=== PATIENT | male | born 1950 | race Caucasian/White ===

== ENCOUNTER → 2017-11-10 13:25 | Outpatient (CLI) | payer MEDICARE, OTHER, SELFPAY | PROVIDERS: PCP Nurse Practitioner; Visit Provider Nurse Practitioner | DX: R55 Syncope and collapse (principal) | CPT/HCPCS: 93270 ==

== ENCOUNTER → 2019-08-07 08:47 | Outpatient (CLI) | payer MEDICARE, OTHER, SELFPAY ==
--- NOTE | 2019-08-07 09:07 | XR_ITS ---
PROCEDURE: XR CHEST 2V CLINICAL HISTORY: BRONCHITIS,COPD COMPARISON: CXR CHEST(2 VIEWS-NOT PORTABLE) from 01/28/2017 CXR CHEST(2 VIEWS-NOT PORTABLE) from 06/07/[address] [facility] CHEST W/O CONTRAST from 06/25/2017 FINDINGS: The cardiomediastinal silhouette and pulmonary vascularity are within normal limits. The lungs are clear without infiltrates, suspicious nodules, or pleural effusions. No acute bony abnormalities. IMPRESSION: No acute findings. Dictated by: Vlad Alfaro 08/07/2019 18:58 Electronically signed by Vlad Alfaro in [place] 08/07/2019 18:58
== END ==
PROVIDERS: PCP Family Medicine; Visit Provider Nurse Practitioner Family
DX: J20.9 Acute bronchitis, unspecified (principal); J44.0 Chronic obstructive pulmonary disease with (acute) lower respiratory infection
CPT/HCPCS: 71046

== ENCOUNTER → 2020-08-15 11:07 | Outpatient (CLI) | payer MEDICARE, OTHER, SELFPAY ==
--- NOTE | 2020-08-15 11:30 | PC.NURSE ---
Pre and Post PFT completed without difficulty. Albuterol 0.083% given via hand held nebulizer per protocol. Pt tolerated well.
== END ==
PROVIDERS: PCP Family Medicine; Visit Provider Family Medicine
DX: R06.00 Dyspnea, unspecified (principal); R06.2 Wheezing
CPT/HCPCS: 94060

== ENCOUNTER → 2022-03-24 15:19 | Outpatient (CLI) | payer MEDICARE, OTHER, SELFPAY ==
--- NOTE | 2022-03-24 15:26 | XR_ITS ---
FINAL REPORT CLINICAL HISTORY: CRUSHING INJURY OF RT GREAT TOE FINDINGS: RIGHT FOOT: Three views of the right foot were obtained. There is a fracture of the distal aspect of the 1st proximal phalanx that extends to the interphalangeal joint. There are fractures of the proximal and distal aspects of the 1st distal phalanx. There are mild degenerative changes. There is no soft tissue abnormality. IMPRESSION: Multiple fractures of the great toe. Reviewed, Interpreted and Dictated by John Kimble III, MD Transcribed by Yaakov Herron Authenticated and [facility]
== END ==
PROVIDERS: PCP Family Medicine; Visit Provider Nurse Practitioner Family
DX: S97.111A Crushing injury of right great toe, initial encounter (principal)
CPT/HCPCS: 73630

== ENCOUNTER → 2023-04-29 12:13 | Outpatient (CLI) | payer MEDICARE, OTHER, SELFPAY | PROVIDERS: PCP Family Medicine; Visit Provider Internal Medicine Pulmonary Disease | DX: R06.09 Other forms of dyspnea (principal) ==

== ENCOUNTER → 2023-05-03 12:38 | Outpatient (CLI) | payer MEDICARE, OTHER, SELFPAY ==
--- NOTE | 2023-05-03 13:34 | PC.NURSE ---
6 Minute Walk test completed on room air, Pt has no complaints. PFT completed without incident. Albuterol 0.083% given via HHN, per written protocol Pt tolerated tx well.
== END ==
PROVIDERS: PCP Family Medicine; Visit Provider Internal Medicine Pulmonary Disease
DX: R06.09 Other forms of dyspnea (principal)
CPT/HCPCS: 94060; 94618; 94726; 94729

== ENCOUNTER 2024-05-08 09:08 | Outpatient (CLI) | payer MEDICARE, OTHER, SELFPAY ==
--- NOTE | 2024-05-08 09:10 | US_ITS ---
FINAL REPORT CLINICAL HISTORY: DYSURIA FINDINGS: Sonographic images of the right upper quadrant were obtained. The pancreas is partially obscured. There is fatty infiltration of the liver. There are multiple benign hepatic cysts within the left lobe measuring up to 32 mm. The gallbladder appears normal without evidence of gallstones.There is no evidence of biliary ductal dilatation.The common duct measures 4mm. Limited images of the right kidney are unremarkable. IMPRESSION: 30 infiltration of the liver with multiple benign hepatic cysts. Reviewed, Interpreted and Dictated by Jose Alejandro Luu MD Transcribed by Raeann Phipps Authenticated and [facility]
== END 2024-05-08 23:59 | disposition home or self-care (01) ==
LOC: RAD 09:09
PROVIDERS: PCP Nurse Practitioner; Visit Provider Nurse Practitioner
DX: R30.0 Dysuria (principal)
CPT/HCPCS: 76705

== ENCOUNTER 2024-05-29 07:52 | Inpatient (IN) | payer MEDICARE, OTHER, SELFPAY ==
[2024-05-29] VITALS (13 sets, daily range): BP systolic 149–212; BP diastolic 85–116; PULSE 66–94; RESP 12–22; TEMP 36.4–37.8; O2SAT 94–98; BMI 31.7
--- NOTE | 2024-05-29 07:58 | ECG_ITS ---
APPROVED REPORT Exam: Resting ECG HR:95 bpm ECG Measurements Heart Rate 95 AXES [place] 141 P 75 QRSd 85 QRS 53 QT 330 T 64 QTc 383 Conclusion SINUS RHYTHM NORMAL ECG UNCONFIRMED REPORT Electronically signed by : Jl Batista, 05/30/2024 14:53:53
[2024-05-29 08:16] LABS: Basophils # 0.1 K/mm3 (0-0.2); Basophils % 0.7 % (0.1-2.0); Eosinophils # 0.1 K/mm3 (0.0-0.4); Eosinophils % 0.6 % (0.1-12.0); Hematocrit 45.1 % (42.0-52.0); Hemoglobin 16.6 g/dL (14.1-18.0); Lymphocytes # 0.7 K/mm3 (0.7-4.5); Lymphocytes % 6.6 % (10-50); Mean Corpuscular HGB Conc 36.9 g/dL (31.8-35.4); Mean Corpuscular Hemoglobin 31.5 pg (27.0-31.2); Mean Corpuscular Volume 85.5 fl (80-94); Mean Platelet Volume 7.6 fl (7.4-10.4); Monocytes # 0.9 K/mm3 (0.1-1.0); Monocytes % 7.9 % (1.7-9.3); Neutrophils # 9.4 K/mm3 (1.8-7.8); Neutrophils % 84.2 % (37.0-80.0); Platelet Count 136 K/mm3 (142-424); Red Blood Count 5.28 M/mm3 (4.60-6.20); Red Cell Distribution Width 14.7 % (11.5-17.5); White Blood Count 11.1 K/mm3 (4.8-10.8)
--- NOTE | 2024-05-29 08:18 | CT_ITS ---
FINAL REPORT TECHNIQUE: After the administration of oral and intravenous contrast, axial images were obtained through the abdomen and pelvis by computed tomography. The study was performed with techniques to keep radiation dose as low as reasonably achievable, (ALARA). Individual dose reduction techniques using automated exposure control or adjustment of mA and/or kV according to the patient's size were employed. CLINICAL HISTORY: left flank, LLQ abd pain FINDINGS: Abdomen: There is scarring in the lung bases. There are a multitude of benign appearing cysts in the liver measuring up to 5.2 cm in greatest dimension. The gallbladder is present. The spleen, pancreas, and adrenal glands are unremarkable. There are bilateral renal stones measuring up to 4 mm in the right kidney and up to 7 mm in the left kidney. The aorta is normal in caliber. There is no free fluid or adenopathy. Pelvis: There is extensive inflammatory reaction surrounding the distal descending colon. This inflammation is best seen on images 61 through 69 of series 3 consistent with acute diverticulitis. There are scattered diverticula in the sigmoid colon. The appendix is not identified. There is a large bladder stone measuring up to 2.3 cm. There is no free fluid or adenopathy. IMPRESSION: Inflammation surrounding the distal descending colon consistent with acute diverticulitis. Bilateral nonobstructing renal stones and a large bladder stone. Benign appearing cysts in the liver. Reviewed, Interpreted and Dictated by Edward Maher MD Transcribed by Sho Miller Authenticated and [facility]
--- NOTE | 2024-05-29 08:24 | PC.NURSE ---
dr lee at bedside
[2024-05-29] MEDS: LACTATED RINGERS 1000ML 2,120 ML 1060 ML IV (08:29)
[2024-05-29 08:32] LABS: Albumin Level 4.4 g/dl (3.5-5.0); Chloride 99 mmol/L (98-107); Sodium 135 mmol/L (136-145)
[2024-05-29] MEDS: ACETAMINOPHEN 1,000MG/100ML VIAL 1000 MG IV (08:32)
[2024-05-29 08:33] LABS: Potassium 3.8 mmoL/L (3.5-5.1)
[2024-05-29 08:35] LABS: Alanine Aminotransferase 24 U/L (12-78); Albumin/Globulin Ratio 1.7 (1.1-1.8); Alkaline Phosphatase 58 U/L (38-126); Anion Gap 9.8 mEq/L (5-15); Aspartate Amino Transferase 24 U/L (17-59); Bilirubin,Total 1.8 mg/dl (0.2-1.3); Blood Urea Nitrogen 9 mg/dl (9-20); Carbon Dioxide 30 mmol/L (22.0-30.0); Creatinine Clearance Estimated 72 mL/min (50-200); Estimated Glomerular Filt Rate 59 ml/min (>60); GFR (African American) 71 ML/MIN (>60); Globulin 2.6 g/dL (1.3-3.2)
[2024-05-29 08:36] LABS: Calcium 9.7 mg/dl (8.4-10.2); Glucose 133 mg/dl (74-100)
[2024-05-29 08:36] LABS: Lactic Acid 1.2 mmol/L (0.7-2.1)
--- NOTE | 2024-05-29 08:36 | HMH.EDGENADL ---
Discharge Plan Disposition Patient Disposition: Admitted Prescriptions Prescriptions: No Action trazodone 150 mg tablet 150 mg PO DAILY atorvastatin 10 mg tablet 10 mg PO DAILY diazepam 5 mg tablet 5 mg PO .Q12 PRN (Reason: .) verapamil 240 mg capsule,ext rel. pellets 24 hr 240 mg PO DAILY metoprolol succinate 100 mg tablet extended release 24 hr 100 mg PO DAILY fluticasone propionate [Flonase Allergy Relief] 50 mcg/actuation spray,suspension 2 spray intranasal DAILY 90 Days Qty: 16 2RF Rx Instructions: administer into each nostril albuterol sulfate 90 mcg/actuation HFA aerosol inhaler 2 inh inhalation Q6H PRN (Reason: shortness of breath or wheezing) 90 Days Qty: 8.5 2RF prednisone 20 mg tablet 20 mg PO DAILY Rx Instructions: 2 tabs bid for 7 days Referrals Follow up/Referrals: Kelly Fuentes APRN [Primary Care Provider] - See instructions Clinical Impressions Clinical Impression: Sepsis, Diverticulitis, Weakness Instructions Patient Instructions: DI for Altered Mental Status Print Language Print Language: Upper Sorbian Discharge ED Provider: Fina Batista General Adult HPI General Chief complaint: Altered Mental Status Stated complaint: Lower ab pain, weakness, disoriented Time Seen by Provider: 05/29/24 08:09 Mode of Arrival: Wheelchair Source of Information: Patient and Spouse Limitations: No Limitations Description of Symptoms (Recalled from ER Triage Doc. by RN): pt presents to the er for confusion, states she found him in the floor about a hour and a half prior to arrival, states he has had a uti for 3 months that has been difficult to treat, has been on several antibiotics, last dose of antibiotics taken about a week and a half ago, waiting on follow up with dr call, states pt has felt feverish this am, pt reports discomfort in his lower left abdomen History of Present Illness HPI narrative: Patient is a 74-year-old male presents today with generalized weakness and being unable to get up on his own strength. He states that he felt very weak this morning did not fall but just went to the ground and was able to get up. His found him. He has been dealing with a difficult to treat urinary tract infection from historical standpoint. Has been on several antibiotics. On his last antibiotic administration he significantly improved but he has been off of it for 3 days and got worse. Has had a fever at home. Also has complained of lower abdominal discomfort. Recently had an ultrasound without any significant abnormalities on this. Other than COPD denies any significant past medical history. Related Data Home Medications ?Medication ?Instructions ?Recorded ?Confirmed atorvastatin 10 mg tablet 10 mg PO DAILY 01/26/23 05/29/24 diazepam 5 mg tablet 5 mg PO .Q12 PRN . 01/26/23 05/29/24 metoprolol succinate 100 mg 100 mg PO DAILY 01/26/23 05/29/24 tablet,extended release 24 hr trazodone 150 mg tablet 150 mg PO DAILY 01/26/23 05/29/24 verapamil 240 mg 24 hr 240 mg PO DAILY 01/26/23 05/29/24 capsule,extended release prednisone 20 mg tablet 20 mg PO DAILY 05/29/24 05/29/24 Previous Rx's ?Medication ?Instructions ?Recorded fluticasone propionate 50 2 spray intranasal DAILY 90 days 11/11/23 mcg/actuation nasal #16 grams spray,suspension (Flonase Allergy Relief) albuterol sulfate 90 mcg/actuation 2 inh inhalation Q6H PRN shortness 03/13/24 aerosol inhaler of breath or wheezing 90 days #8.5 grams Allergies Allergy/AdvReac Type Severity Reaction Status Date / Time codeine Allergy Intermediate Other Verified 05/29/24 08:[address] Dye Allergy Other Uncoded 05/29/24 08:11 [facility] Disclaimer: The information contained in this section may have been updated after the patient was seen, as this information can be updated by other users. Medical History COPD mixed type Allergic rhinitis Stopped smoking between 5 and 10 years ago Family history of asthma Dyspnea on exertion Asthma Surgical History History of hernia surgery History of tonsillectomy Family History No significant family history Social History Smoking Status: Never smoker how long ago did patient quit smokin alcohol intake: never current occupational status: retired Travel in the last 8 weeks: None Other Medical History Have you received the Pneumonia Vaccine: Yes ROS Obtained: Yes All systems reviewed & no additional complaints except as documented Physical Exam General General appearance: alert Respiratory Respiratory exam: Present normal lung sounds bilaterally Cardiovascular Cardiovascular exam: Present tachycardia Abdominal Exam Abdominal exam: Present other (Left lower quadrant tenderness palpation no rebound or guarding) Neurological Exam Neurological exam: Present alert and oriented X3 Medical Decision Making Medical Records Screening: Per USPSTF and CDC recommendations, given the prevalence of disease in our region, it is our hospital?s policy to screen for HIV and viral Hepatitis for all patients aged 18 and over and those with ongoing risk factors. [place] Inquiry Pt receiving controlled substance: No Vital Signs: 05/29/24 07:54 05/29/24 08:30 05/29/24 09:18 Temperature 100.0 F H Temperature Source Oral Pulse Rate 87 82 Pulse Rate [Left Radial] 94 H Respiratory Rate 22 16 17 Blood Pressure 191/116 H 180/109 H Blood Pressure [Right Arm] 212/114 H Blood Pressure Mean 140 Blood Pressure Mean [Right Arm] 146 Blood Pressure Source [Right Arm] Automatic Cuff Blood Pressure Position [Right Arm] Sitting 02 Sat by Pulse Oximetry 94 L 94 L 98 Oxygen Delivery Method Room Air 05/29/24 09:30 05/29/24 10:00 05/29/24 10:31 Temperature Temperature Source Pulse Rate 80 78 72 Pulse Rate [Left Radial] Respiratory Rate 18 15 12 Blood Pressure 188/106 H 190/104 H 165/97 H Blood Pressure [Right Arm] Blood Pressure Mean 143 141 Blood Pressure Mean [Right Arm] Blood Pressure Source [Right Arm] Blood Pressure Position [Right Arm] 02 Sat by Pulse Oximetry 95 96 95 Oxygen Delivery Method Room Air Lab Data Lab results reviewed: Yes I reviewed the patient's lab results. Lab Results 05/29/24 08:00: WBC 11.1 H, RBC 5.28, Hgb 16.6, Hct 45.1, MCV 85.5, MCH 31.5 H, MCHC 36.9 H, RDW 14.7, Plt Count 136 L, MPV 7.6, Neut % (Auto) 84.2 H, Lymph % (Auto) 6.6 L, [place] % (Auto) 7.9, Eos % (Auto) 0.6, Baso % (Auto) 0.7, Neut # (Auto) 9.4 H, Lymph # (Auto) 0.7, [place] # (Auto) 0.9, Eos # (Auto) 0.1, Baso # (Auto) 0.1, Sodium 135 L, Potassium 3.8, Chloride 99, Carbon Dioxide 30, Anion Gap 9.8, BUN 9, Creatinine 1.20, Estimated Creat Clear 72, Estimated GFR 59, Est GFR ( Amer) 71, Glucose 133 H, Calcium 9.7, Total Bilirubin 1.8 H, AST 24, ALT 24, Alkaline Phosphatase 58, Total Protein 7.0, Albumin 4.4, Globulin 2.6, Albumin/Globulin Ratio 1.7 05/29/24 08:06: Lactate 1.2 05/29/24 09:49: Urine Color [place], Urine Appearance Clear, Urine pH 6.0, Ur Specific [place] 1.025, Urine Protein 1+ A, Urine Glucose (UA) Negative, Urine Ketones Negative, Urine Blood 3+ A, Urine Nitrate Negative, Urine Bilirubin Negative, Urine Urobilinogen 0.2, Ur Leukocyte Esterase Negative, Urine RBC 20-50, Urine WBC None, Ur Squamous Epith Cells None, Ur Transition Epith Cell Occ, Urine Bacteria None 05/29/24 08:00 05/29/24 08:00 Orders (Tests/Meds): ED MEDICATIONS Generic Name Dose Route Start Last Admin Trade Name Freq PRN Reason Stop Dose Admin Acetaminophen 650 mg 05/29/24 10:57 Acetaminophen 325mg Tab PO 06/28/24 10:56 Q4HP PRN Fever or Mild Pain (1-3) Piperacillin Sod/Tazobactam 50 mls @ 100 mls/hr 05/29/24 10:30 05/29/24 10:36 Sod 3.375 gm/ Sodium Chloride IV 06/08/24 10:29 100 mls/hr Q6H JUANITA Administration Piperacillin Sod/Tazobactam 50 mls @ 100 mls/hr 05/29/24 16:00 Sod 3.375 gm/ Sodium Chloride IV 06/08/24 15:59 Q6H JUANITA Discontinued Medications Generic Name Dose Route Start Last Admin Trade Name Freq PRN Reason Stop Dose Admin Acetaminophen 1,000 mg 05/29/24 08:18 05/29/24 08:32 Acetaminophen 1,000mg/100ml Vial IV 05/29/24 08:19 1,000 mg ONCE ONE Administration Lactated Ringer's 2,120 mls @ 1,060 mls/hr 05/29/24 08:18 05/29/24 08:29 Lactated Ringer's 1000 Ml Bag 30 ml/kg infuse over 2 hr (2120 ml) 05/29/24 10:17 1,060 mls/hr IV Administration .Q2H ONE Iopamidol 75 ml 05/29/24 08:57 05/29/24 08:58 Iopamidol-370 (76%);100ml Bottle IV 05/29/24 08:58 75 ml ONCE ONE Administration Ketorolac Tromethamine 15 mg 05/29/24 10:03 05/29/24 10:07 Ketorolac 30mg/Ml Vial IV 05/29/24 10:04 15 mg ONCE ONE Administration Sodium Chloride 10 ml 05/29/24 08:57 05/29/24 08:58 Sodium Chloride 0.9% 10ml Syr (Rad Only) IV 05/29/24 08:58 10 ml ONCE ONE Administration ORDERS Category Date Time Status CT abdomen pelvis w con Stat Cat Scan 05/29/24 08:18 Completed Complete Blood Count Auto Diff AMLAB Lab 05/30/24 06:00 Ordered Complete Blood Count Auto Diff Stat Lab 05/29/24 08:00 Completed Comprehensive Metabolic Panel AMLAB Lab 05/30/24 06:00 Ordered Comprehensive Metabolic Panel Stat Lab 05/29/24 08:00 Completed HIV (1&2) Antibody Rapid Stat Lab 05/29/24 08:00 Received Hep C Ab with Reflex to RNA Stat Lab 05/29/24 08:00 Received Lactic Acid Stat Lab 05/29/24 08:06 Completed Magnesium AMLAB Lab 05/30/24 06:00 Ordered Urinalysis and Microscopic Stat Lab 05/29/24 09:49 Completed Blood Culture Stat Micro 05/29/24 08:06 Received Tissue Perfus/Sepsis Re-Eval Sepsis Re-Evaluation Performed: Yes Date Performed: 05/29/24 Time Performed: 10:59 Medical Decision Narrative: 74-year-old low-grade temp and tachycardia presenting today with confusion weakness recent urinary tract infection lower abdominal discomfort. Differential includes sepsis from urinary source, colitis diverticulitis or other colonic pathology, prostatitis, complicated urinary tract infection etc. Will get a contrasted CT scan for further evaluation and management. No evidence of shock clinically holding off on definitive antibiotic administration while I gather further information. I do not have recent susceptibilities or speciation. IV fluid administration has begun. Will reassess after this initial workup is complete. Reassessment CT scan performed to person interpreted which shows left sided descending colon colitis versus diverticulitis. No evidence of perforation or abscess. Patient also has a 20 mm dependent stone in the bladder. Urinalysis performed with a cath UA without any evidence of infection. Patient's been off antibiotics for 1 week. This is unlikely to be the cause of the patient's infectious/septic symptoms. Patient did have leukocytosis low-grade fever I am treating him as if he is septic. No evidence of endorgan damage or shock. Mental status for me has been good however he was confused at home and very weak could not get up from the ground. Given patient is the sicker and out of proportion what I am seeing radiographically we will put him on IV antibiotics and admit him to hospital. No definitive need for urologic intervention at the moment however this will definitely need to be followed up on and is the cause of the patient's hematuria. Unlikely that this is falsely sterilized given the fact has been off antibiotics for a week. Blood cultures have been sent patient was admitted for further evaluation and management by Dr. Castellano with [facility]. Critical Care Critical Care Time Critical Care Time: Yes Attestation: On 05/29/24, the high probability of a clinically significant, sudden or life threatening deterioration of the following system(s) required my full and direct attention, intervention and personal management. The time I documented below is in addition to time spent performing reported procedures but includes the following listed in this critical care notation. Total Time Total Critical Care Time: 35
--- NOTE | 2024-05-29 08:39 | HMH.ITSTN ---
I spoke with er nurse Loly and notified her that this patient has a contrast allergy. She spoke with patient while I was on the phone with her and the patient stated he had contrast at least 40 years ago and had a reaction to contrast but wasn't sure of the severity. patient states he received medication right after injection. The er nurse also spoke with Dr Batista while I was still on the phone and he was ok with me to proceed with contrast study.
--- NOTE | 2024-05-29 08:51 | PC.NURSE ---
pt transported to radiology via stretcher
[2024-05-29] MEDS: IOPAMIDOL-370 (76%);100ML BOTTLE 75 ML IV (08:58)
[2024-05-29] MEDS: SODIUM CHLORIDE 0.9% 10ML SYR (RAD ONLY) 10 ML IV (08:58)
--- NOTE | 2024-05-29 09:04 | PC.NURSE ---
PT RETURNED FROM RADIOLOGY
[2024-05-29 09:53] LABS: Microscopic, Urine URINE MICROSCOPIC (MICROSCOPIC)
[2024-05-29 10:04] LABS: Appearance,Urine CLEAR (Clear); Bilirubin,Urine Negative (Negative); Blood, Urine 3+ (Negative); Color,Urine ORANGE (Yellow); Glucose,Urine (UA) Negative (Negative); Ketones,Urine Negative (Negative); Leukocyte Esterase,Urine Negative (Negative); Nitrate,Urine Negative (Negative); Protein,Urine 1+ (Negative); Specific Gravity, Urine 1.025 (1.005-1.030); Urobilinogen,Urine 0.2 EU/dl (0.2)
[2024-05-29] MEDS: KETOROLAC 30MG/ML VIAL 15 MG IV (10:07)
[2024-05-29] MEDS: PIPERCILLIN/TAZO 3.375 GM in 0.9 % SODIUM CHLORIDE 50 ML IV ×3 (10:36→21:25)
[2024-05-29 10:37] LABS: RBC,Urine 20-50 #/hpf (0-3)
[2024-05-29 10:38] LABS: Transitional Epi Cells,Urine OCC #/lpf (0-3)
--- NOTE | 2024-05-29 10:55 | PC.NURSE ---
DR NAVARRO IS SPEAKING TO DR GUZMÁN
--- NOTE | 2024-05-29 11:00 | P.HP_ITS ---
History of Present Illness *Admission Date: 05/29/24 *Reason for visit:: confusion, abdominal pain *History of present illness: Mr. Junior is a 74-year-old male with history of COPD and recurrent UTIs over the past 3 months. Presents to the ER for confusion. Family found him in the floor of the bathroom less than 2 hours prior to arrival to the ER. States he was feeling weak and sat down. Family was concerned that he was confused. He was leaning against the bathroom door and they had to push it open to get to him. He denies any chest pain or shortness of breath. Family states he had felt feverish this morning and just was not himself the past day or 2. Has had some lower abdominal discomfort over the past 2 days. No nausea or vomiting. Has been stable on room air. Recent antibiotics include Macrobid, doxycycline, Cipro, cefdinir over the past 2 months. Workup in the ER with tachycardia and tachypnea. Mild elevation of white count. Elevated temperature but no esequiel fever. CT of abdomen showed concern for diverticulitis as well as large bladder stone. Medicine consulted for admission and further management. Initiated on antibiotics and IV fluids. At time of arrival on the floor, patient feeling little better. He is alert and oriented x 3. Family at bedside. Still complaining of some mild lower abdominal pain. No nausea or vomiting. [facility] Disclaimer: The information contained in this section may have been updated after the patient was seen, as this information can be updated by other users. Medical History COPD mixed type Allergic rhinitis Stopped smoking between 5 and 10 years ago Family history of asthma Dyspnea on exertion Asthma Surgical History History of hernia surgery History of tonsillectomy Family History No significant family history Social History Smoking Status: Never smoker how long ago did patient quit smokin alcohol intake: never current occupational status: retired Travel in the last 8 weeks: None Other Medical History Have you received the Pneumonia Vaccine: Yes Review of Systems Review of Systems Review of systems (narrative): 14 point review of systems performed, pertinent positives and negatives as per HPI Meds Home Medications and Allergies Home Medications ?Medication ?Instructions ?Recorded ?Confirmed ?Type diazepam 5 mg tablet 5 mg PO BID PRN Anxiety 01/26/23 05/29/24 History metoprolol succinate 100 mg 100 mg PO DAILY 01/26/23 05/29/24 History tablet,extended release 24 hr trazodone 150 mg tablet 150 mg PO DAILY 01/26/23 05/29/24 History verapamil 240 mg 24 hr 240 mg PO DAILY 01/26/23 05/29/24 History capsule,extended release fluticasone propionate 50 2 spray intranasal DAILY 90 days 11/11/23 05/29/24 Rx mcg/actuation nasal #16 grams spray,suspension (Flonase Allergy Relief) albuterol sulfate 90 mcg/actuation 2 inh inhalation Q6H PRN shortness 03/13/24 05/29/24 Rx aerosol inhaler of breath or wheezing 90 days #8.5 grams New Prescriptions to Start Prescriptions: Allergies Allergy/AdvReac Type Severity Reaction Status Date / Time codeine Allergy Intermediate Other Verified 05/29/24 08:[address] Dye Allergy Other Uncoded 05/29/24 08:11 Exam Data for Last 24 hours Vital signs and Labs for Last 24 Hours: Temp Pulse Resp BP Pulse Ox O2 Del Method 100.0 F H 72 12 165/97 H 95 Room Air 05/29/24 07:54 05/29/24 10:31 05/29/24 10:31 05/29/24 10:31 05/29/24 10:31 05/29/24 10:31 Laboratory Results - last 24 hr 05/29/24 08:00: WBC 11.1 H, RBC 5.28, Hgb 16.6, Hct 45.1, MCV 85.5, MCH 31.5 H, MCHC 36.9 H, RDW 14.7, Plt Count 136 L, MPV 7.6, Neut % (Auto) 84.2 H, Lymph % (Auto) 6.6 L, Gregg % (Auto) 7.9, Eos % (Auto) 0.6, Baso % (Auto) 0.7, Neut # (Auto) 9.4 H, Lymph # (Auto) 0.7, Gregg # (Auto) 0.9, Eos # (Auto) 0.1, Baso # (Auto) 0.1, Sodium 135 L, Potassium 3.8, Chloride 99, Carbon Dioxide 30, Anion Gap 9.8, BUN 9, Creatinine 1.20, Estimated Creat Clear 72, Estimated GFR 59, Est GFR ( Amer) 71, Glucose 133 H, Calcium 9.7, Total Bilirubin 1.8 H, AST 24, ALT 24, Alkaline Phosphatase 58, Total Protein 7.0, Albumin 4.4, Globulin 2.6, Albumin/Globulin Ratio 1.7 05/29/24 08:06: Lactate 1.2 05/29/24 09:49: Urine Color [place], Urine Appearance Clear, Urine pH 6.0, Ur Specific [place] 1.025, Urine Protein 1+ A, Urine Glucose (UA) Negative, Urine Ketones Negative, Urine Blood 3+ A, Urine Nitrate Negative, Urine Bilirubin Negative, Urine Urobilinogen 0.2, Ur Leukocyte Esterase Negative, Urine RBC 20- 50, Urine WBC None, Ur Squamous Epith Cells None, Ur Transition Epith Cell Occ, Urine Bacteria None I & O for Last 24 hours: Intake & Output 05/26/24 05/27/24 05/28/24 05/29/24 23:59 23:59 23:59 23:59 Weight 97.522 kg Constitutional Constitutional: no acute distress, chronically ill appearing and cooperative *Routine HEENT Exam Head: Present normocephalic Eye: Present EOMI and PERRL ENT: Present mucous membranes moist *Routine Neck Exam Neck: Present supple; Absent lymphadenopathy *Routine Respiratory Exam Respiratory: Present prolonged expiratory phase and wheezes; Absent respiratory distress, rhonchi or crackles *Routine Cardiovascular Exam Cardiovascular: Present RRR *Routine Abdominal Exam Abdominal: Present soft, normoactive bowel sounds and tenderness (Left lower quadrant) *Routine Rectal Exam Rectal:: deferred *Routine Genitalia Exam Genitalia:: deferred *Routine Extremities Exam Extremities: Absent cyanosis, clubbing or edema *Routine Skin Exam Skin: Present warm; Absent rash *Routine Neurological Exam Neurological: Present alert, oriented X3, altered mental status and moving all extremities Assessment and Plan *Assessment and plan (1) Sepsis: Status: Acute Category: Medical Code(s): A41.9 - Sepsis, unspecified organism (2) Diverticulitis: Status: Acute Category: Medical Code(s): K57.92 - Diverticulitis of intestine, part unspecified, without perforation or abscess without bleeding (3) COPD mixed type: Status: Acute Category: Medical Code(s): J44.9 - Chronic obstructive pulmonary disease, unspecified (4) Bladder stone: Status: Acute Category: Medical Code(s): N21.0 - Calculus in bladder (5) Hypertension: Status: Acute Category: Medical Code(s): I10 - Essential (primary) hypertension (6) Anxiety: Status: Acute Category: Medical Code(s): F41.9 - Anxiety disorder, unspecified Plan 74-year-old male with history of COPD who presents with weakness after being found on the floor in the bathroom at home. Workup in the ER concerning for diverticulitis. Discussed case with ER physician, request admission for antibiotics and further management. I admitted for further IV antibiotics and monitoring. Problems addressed as follows: Diverticulitis Bladder -Per my review of CT of abdomen, had stranding around sigmoid colon, suspicious for diverticulitis. Also noted to have large approximately 2 cm bladder stone that was nonobstructing. -Initiated on Zosyn in the ER, will continue Zosyn 3.75 g every 6 hours. White count of 11. Repeat CBC, CMP, magnesium ordered for the morning. -Patient hungry, passing gas, initiate regular diet. - Negative for UTI at this time, bacteria none, leuk esterase negative, nitrate negative and urine. Does have 3+ blood. Suspect secondary to irritation from stone. Will need follow-up with urology to evaluate stone and possible removal given recurrent UTIs. Kidney function normal with BUN 9, creatinine 1.2 COPD: Continue DuoNebs as needed every 6 hours. Stable on room air. Hypertension: Continue metoprolol succinate 100 mg daily. Blood pressure elevated on arrival to the ER with systolic above 200. Will initiate irbesartan 75 mg daily. Continue home verapamil 240 mL extended release daily Sleep disorder: Continue trazodone 150 mg nightly Anxiety: Continue Valium 5 mg twice daily as needed Full code Regular diet
--- NOTE | 2024-05-29 11:04 | PC.NURSE ---
Notified HS of the need for an admission bed
--- NOTE | 2024-05-29 11:30 | PC.NURSE ---
Report called to PEDRO Whitmore on Med Surg.
--- NOTE | 2024-05-29 11:45 | PC.NURSE ---
arrived to floor by w/c from ED
--- NOTE | 2024-05-29 13:18 | HMH.PHAINT1 ---
Pharmacy Intervention Comments: Home medications verified using list from pharmacy and interview with patients daughter at bedside.
[2024-05-29 14:47] LABS: HIV (1&2) Antibody Rapid NONREACTIVE (NONREACTIVE)
--- NOTE | 2024-05-29 17:57 | PC.NURSE ---
new admit this shift. alert and oriented upon arrival to floor. tolerating diet well. not requiring o2 support. bed alarm in place regarding pt confusion at home, family at bedside.
[2024-05-29] MEDS: IRBESARTAN 150MG TAB 37.5 MG PO (19:46)
[2024-05-29] MEDS: ACETAMINOPHEN 325MG TAB 650 MG PO (19:47)
[2024-05-29] MEDS: TRAZODONE 150 MG 1 EACH PO (20:02)
[2024-05-29] MEDS: IPRATROPIUM/ALBUTEROL 3 ML NEB IH (20:08)
[2024-05-30 00:39] VITALS: BP 179/75; PULSE 67; RESP 18; TEMP 36.6; O2SAT 95
[2024-05-30] MEDS: PIPERCILLIN/TAZO 3.375 GM in 0.9 % SODIUM CHLORIDE 50 ML IV ×2 (03:23→09:30)
[2024-05-30] MEDS: HYDRALAZINE 20MG/ML VIAL 10 MG IV (03:58)
[2024-05-30 04:00] VITALS: BP 186/109; PULSE 73; RESP 18; TEMP 36.6; O2SAT 95; BMI 32.1
--- NOTE | 2024-05-30 05:03 | PC.NURSE ---
Pt is alert and oriented. Complained of a headache one time, treated per oct. BP elevated at the beginning of shift, Paul Berrios APRN aware and new orders received and carried out. 0400, BP elevated systolic above 180, gave PRN BP medication. New BP charted. Pt has ambulated to the restroom with standby assist. No other pain noted. Wheezing noted in bilateral lungs. PRN duonebs as charted. Bed alarm on. Call light in reach.
[2024-05-30 05:15] VITALS: BP 191/101
[2024-05-30] MEDS: cloNIDine 0.1MG TABLET 0.1 MG PO (05:46)
[2024-05-30 06:30] VITALS: BP 182/112
[2024-05-30 07:19] LABS: Albumin Level 3.6 g/dl (3.5-5.0); Basophils # 0.1 K/mm3 (0-0.2); Basophils % 0.9 % (0.1-2.0); Chloride 104 mmol/L (98-107); Eosinophils # 0.1 K/mm3 (0.0-0.4); Hematocrit 40.1 % (42.0-52.0); Lymphocytes # 1.4 K/mm3 (0.7-4.5); Lymphocytes % 20.8 % (10-50); Mean Corpuscular Hemoglobin 31.5 pg (27.0-31.2); Mean Corpuscular Volume 85.1 fl (80-94); Mean Platelet Volume 7.9 fl (7.4-10.4); Monocytes # 0.5 K/mm3 (0.1-1.0); Monocytes % 7.3 % (1.7-9.3); Neutrophils # 4.6 K/mm3 (1.8-7.8); Neutrophils % 68.9 % (37.0-80.0); Platelet Count 118 K/mm3 (142-424); Potassium 3.4 mmoL/L (3.5-5.1); Red Blood Count 4.71 M/mm3 (4.60-6.20); Red Cell Distribution Width 14.8 % (11.5-17.5); Sodium 136 mmol/L (136-145); White Blood Count 6.7 K/mm3 (4.8-10.8)
[2024-05-30 07:22] LABS: Alanine Aminotransferase 18 U/L (12-78); Albumin/Globulin Ratio 1.5 (1.1-1.8); Alkaline Phosphatase 50 U/L (38-126); Anion Gap 9.4 mEq/L (5-15); Aspartate Amino Transferase 20 U/L (17-59); Bilirubin,Total 1.6 mg/dl (0.2-1.3); Blood Urea Nitrogen 11 mg/dl (9-20); Calcium 9.3 mg/dl (8.4-10.2); Carbon Dioxide 26 mmol/L (22.0-30.0); Creatinine Clearance Estimated 88 mL/min (50-200); Estimated Glomerular Filt Rate 73 ml/min (>60); GFR (African American) 88 ML/MIN (>60); Globulin 2.4 g/dL (1.3-3.2); Glucose 102 mg/dl (74-100); Magnesium 1.7 mg/dl (1.6-2.3)
[2024-05-30 07:35] VITALS: BP 150/104; PULSE 98; RESP 18; TEMP 36.8; O2SAT 94
[2024-05-30 07:38] LABS: Hemoglobin 14.8 g/dL (14.1-18.0)
[2024-05-30] MEDS: PAT OWN MED ***METOPROLOL SUCCINATE XL 100MG 100 MG PO (08:02)
[2024-05-30] MEDS: VERAPAMIL 240 MG 1 EACH PO (08:02)
[2024-05-30] MEDS: IRBESARTAN 75MG TABLET 75 MG PO (08:02)
[2024-05-30 08:19] LABS: HCV Ab Non Reactive (Non Reactive)
[2024-05-30 10:26] VITALS: BP 97/54; PULSE 62
--- NOTE | 2024-06-06 17:46 | EXP.DC.SUM ---
General Admission date:: 05/29/24 HPI HPI HPI: Mr. Junior is a 74-year-old male with history of COPD and recurrent UTIs over the past 3 months. Presents to the ER for confusion. Family found him in the floor of the bathroom less than 2 hours prior to arrival to the ER. States he was feeling weak and sat down. Family was concerned that he was confused. He was leaning against the bathroom door and they had to push it open to get to him. He denies any chest pain or shortness of breath. Family states he had felt feverish this morning and just was not himself the past day or 2. Has had some lower abdominal discomfort over the past 2 days. No nausea or vomiting. Has been stable on room air. Recent antibiotics include Macrobid, doxycycline, Cipro, cefdinir over the past 2 months. Workup in the ER with tachycardia and tachypnea. Mild elevation of white count. Elevated temperature but no esequiel fever. CT of abdomen showed concern for diverticulitis as well as large bladder stone. Medicine consulted for admission and further management. Initiated on antibiotics and IV fluids. At time of arrival on the floor, patient feeling little better. He is alert and oriented x 3. Family at bedside. Still complaining of some mild lower abdominal pain. No nausea or vomiting. Hospital Course Hospital Course Hospital Course: 74-year-old male with history of COPD who presents with weakness after being found on the floor in the bathroom at home. Workup in the ER concerning for diverticulitis. Discussed case with ER physician, request admission for antibiotics and further management. I admitted for further IV antibiotics and monitoring. Problems addressed as follows: Diverticulitis Bladder stone -Per my review of CT of abdomen, had stranding around sigmoid colon, suspicious for diverticulitis. Also noted to have large approximately 2 cm bladder stone that was nonobstructing. - Improved with IV Zosyn. Patient tolerating PO, passing gas, having bowel movements. - UA does have 3+ blood. Suspect secondary to irritation from stone. - Will need follow-up with urology to evaluate stone and possible removal given recurrent UTIs. Kidney function normal with BUN 9, creatinine 1.2. - Discharged with cipro, flagyl for 6 more days. Will follow-up with PCP within 1 week. Exam Data for Last 24 hours Vital signs and Labs for Last 24 Hours: Temp Pulse Resp BP Pulse Ox O2 Del Method 98.3 F 62 18 97/54 L 94 L Room Air 05/30/24 07:35 05/30/24 10:26 05/30/24 07:35 05/30/24 10:26 05/30/24 07:35 05/30/24 11:51 Constitutional Constitutional: no acute distress *Routine HEENT Exam Head: Present normocephalic Eye: Present EOMI and PERRL ENT: Present mucous membranes moist *Routine Neck Exam Neck: Present supple; Absent lymphadenopathy *Routine Respiratory Exam Respiratory: Present CTA bilaterally *Routine Cardiovascular Exam Cardiovascular: Present RRR *Routine Abdominal Exam Abdominal: Present soft and normoactive bowel sounds; Absent tenderness *Routine Extremities Exam Extremities: Absent cyanosis, clubbing or edema *Routine Skin Exam Skin: Present warm; Absent rash *Routine Neurological Exam Neurological: Present alert and oriented X3 DS: Diagnosis Discharge Diagnosis (1) Sepsis: Status: Acute Code(s): A41.9 - Sepsis, unspecified organism (2) Diverticulitis: Status: Acute Code(s): K57.92 - Diverticulitis of intestine, part unspecified, without perforation or abscess without bleeding (3) COPD mixed type: Status: Acute Code(s): J44.9 - Chronic obstructive pulmonary disease, unspecified (4) Bladder stone: Status: Acute Code(s): N21.0 - Calculus in bladder (5) Hypertension: Status: Acute Code(s): I10 - Essential (primary) hypertension (6) Anxiety: Status: Acute Code(s): F41.9 - Anxiety disorder, unspecified Meds Home Medications and Allergies Home Medications ?Medication ?Instructions ?Recorded ?Confirmed ?Type diazepam 5 mg tablet 5 mg PO BID PRN Anxiety 01/26/23 06/06/24 History metoprolol succinate 100 mg 100 mg PO DAILY 01/26/23 06/06/24 History tablet,extended release 24 hr trazodone 150 mg tablet 150 mg PO DAILY 01/26/23 06/06/24 History ciprofloxacin HCl 500 mg tablet 500 mg PO Q12H 6 days #12 tabs 05/30/24 06/06/24 Rx (Cipro) irbesartan 75 mg tablet 75 mg PO DAILY 30 days #30 tabs 05/30/24 06/06/24 Rx metronidazole 500 mg tablet 500 mg PO Q8H 6 days #18 tabs 05/30/24 06/06/24 Rx albuterol sulfate 90 mcg/actuation 2 inh inhalation Q6H PRN shortness 06/06/24 06/06/24 Rx aerosol inhaler of breath or wheezing 90 days #8.5 grams azelastine 137 mcg (0.1 %) nasal 2 spray intranasal HS 90 days #30 06/06/24 06/06/24 Rx spray mL budesonide 160 mcg-glycopyr 9 2 inh inhalation BID 90 days #10.7 06/06/24 06/06/24 Rx mcg-formot 4.8 mcg/actuation HFA grams inhaler (Breztri Aerosphere) fluticasone propionate 50 2 spray intranasal DAILY 90 days 06/06/24 06/06/24 Rx mcg/actuation nasal #16 grams spray,suspension (Flonase Allergy Relief) New Prescriptions to Start Prescriptions: ciprofloxacin HCl [Cipro] Haim Owens irbesartan Haim Owens metronidazole Haim Owens Allergies Allergy/AdvReac Type Severity Reaction Status Date / Time codeine Allergy Intermediate Other Verified 06/06/24 15:35 Iodinated Contrast Media Allergy Unknown Unknown Verified 06/06/24 15:35 allergy reaction Discharge Plan Disposition Patient Disposition: Home, Self-Care Condition: Good Discharge Order Discharge Orders: Discharge Order (Routine); Ordered 05/30/24 Ordered By: Haim wOens Follow up Plan Follow up with: Alfredo (ED),DANYELLE Mendoza [Nurse Practitioner] - 06/07/24 9:30 am Haim Thomas MD [Staff Physician] - 06/05/24 9:30 am Prescriptions/Medication Reconciliation: New irbesartan 75 mg Tablet 75 mg PO DAILY 30 Days Qty: 30 0RF ciprofloxacin HCl [Cipro] 500 mg tablet 500 mg PO Q12H 6 Days Qty: 12 0RF metronidazole 500 mg tablet 500 mg PO Q8H 6 Days Qty: 18 0RF Continued trazodone 150 mg tablet 150 mg PO DAILY diazepam 5 mg tablet 5 mg PO BID PRN (Reason: Anxiety) metoprolol succinate 100 mg tablet extended release 24 hr 100 mg PO DAILY Discontinued verapamil 240 mg capsule,ext rel. pellets 24 hr 240 mg PO DAILY No Action fluticasone propionate [Flonase Allergy Relief] 50 mcg/actuation spray,suspension 2 spray intranasal DAILY 90 Days Qty: 16 2RF Rx Instructions: administer into each nostril Breztri Aerosphere 160-9-4.8 mcg/actuation HFA aerosol inhaler 2 inh inhalation BID 90 Days Qty: 10.7 3RF albuterol sulfate 90 mcg/actuation HFA aerosol inhaler 2 inh inhalation Q6H PRN (Reason: shortness of breath or wheezing) 90 Days Qty: 8.5 2RF azelastine 137 mcg (0.1 %) spray,non-aerosol 2 spray intranasal HS 90 Days Qty: 30 2RF Rx Instructions: administer into each nostril Problem Reconciliation Problems Reviewed?: Yes Patient Discharge Instructions ACTIVITY: Continue current activity DIET: continue same diet Patient Instructions: Essential Hypertension, DI for Diverticulitis, DI for Sepsis -- Adult Print Language: [place]i Providers Primary Care Provider: Kelly Fuentes Admit Provider: Jl Castellano Attending Provider: Jl Castellano
== END 2024-05-30 13:54 | disposition home or self-care (01) | DRG 392 ==
LOC: ER 10:59 → 2ND 11:19
PROVIDERS: Admitting Provider Internal Medicine Adolescent Medicine; Emergency Provider Student in an Organized Health Care Education/Training Program; PCP Nurse Practitioner; Visit Provider Internal Medicine Adolescent Medicine
DX: K57.32 Diverticulitis of large intestine without perforation or abscess without bleeding; J44.9 Chronic obstructive pulmonary disease, unspecified; N21.0 Calculus in bladder; I10 Essential (primary) hypertension; F41.9 Anxiety disorder, unspecified; Z79.899 Other long term (current) drug therapy
CPT/HCPCS: 36415; 74177; 80053; 81001; 83605; 83735; 85025; 86803; 87040; 87389; 93005; 94640; 99291; J0131; J0360; J1885; J2543; J7120; J7620; Q9967

== ENCOUNTER 2024-06-05 10:06 | Outpatient (CLI) | payer MEDICARE, OTHER, SELFPAY ==
[2024-06-05 10:59] LABS: Microscopic, Urine URINE MICROSCOPIC (MICROSCOPIC)
[2024-06-05 12:07] LABS: Appearance,Urine CLEAR (Clear); Blood, Urine 2+ (Negative); Glucose,Urine (UA) Negative (Negative); Ketones,Urine TRACE (Negative); Leukocyte Esterase,Urine TRACE (Negative); Nitrate,Urine POSITIVE (Negative); PH,Urine 5.5 (5.0-8.5); Protein,Urine 2+ (Negative); Specific Gravity, Urine >= 1.030 (1.005-1.030); Urobilinogen,Urine 0.2 EU/dl (0.2)
[2024-06-05 12:16] LABS: Bilirubin,Urine Negative (Negative)
[2024-06-05 12:17] LABS: Color,Urine Dark Yellow (Yellow)
[2024-06-05 14:57] LABS: Calcium Oxalate Crystals,Urine 3+ /lpf; RBC,Urine TNTC #/hpf (0-3); WBC,Urine 20-50 #/hpf (0-3)
[2024-06-05 14:58] LABS: Bacteria,Urine 3+ /lpf
[2024-06-05 19:25] LABS: Blood Urea Nitrogen 13 mg/dl (9-20); Estimated Glomerular Filt Rate 42 ml/min (>60); GFR (African American) 51 ML/MIN (>60)
[2024-06-06 14:13] LABS: PSA, Free 1.18 ng/mL; Prostate Specific Ag 2.3 ng/mL (0.0-4.0)
== END 2024-06-05 23:59 | disposition home or self-care (01) ==
LOC: LAB 10:07
PROVIDERS: PCP Nurse Practitioner; Visit Provider Urology
DX: R31.9 Hematuria, unspecified (principal); N40.0 Benign prostatic hyperplasia without lower urinary tract symptoms
CPT/HCPCS: 36415; 81001; 82565; 84153; 84154; 84520; 87086

== ENCOUNTER 2024-06-08 10:39 | Outpatient (CLI) | payer MEDICARE, OTHER, SELFPAY ==
--- NOTE | 2024-06-08 11:00 | US_ITS ---
PROCEDURE INFORMATION: Exam: US Pelvis Limited, Bladder Exam date and time: 06/08/2024 10:55 AM Age: 74 years old Clinical indication: Abnormal findings; Abnormal imaging test; Patient HX: Recent dx of bladder stone TECHNIQUE: Imaging protocol: Real-time pelvic ultrasound (non-obstetric) with image documentation. Exam focused on the urinary bladder. Total images: 150 COMPARISON: US URINARY BLADDER 06/08/2024 10:55 AM FINDINGS: Urinary bladder: Bladder calcifications are present. Bladder calcifications measure up to 2.5 cm. Bladder pre-void volume (cc): 100.1 mL Bladder post-void residual volume (cc): 41.9 mL IMPRESSION: 1. Prevoid bladder volume is 100.14 mL and postvoid volume is 41.9 mL. 2. Bladder calcifications are present.
== END 2024-06-08 23:59 | disposition home or self-care (01) ==
LOC: RAD 10:39
PROVIDERS: PCP Physician Assistant; Visit Provider Urology
DX: R31.9 Hematuria, unspecified (principal); N40.0 Benign prostatic hyperplasia without lower urinary tract symptoms; N21.0 Calculus in bladder; N19 Unspecified kidney failure; N39.0 Urinary tract infection, site not specified
CPT/HCPCS: 76857

== ENCOUNTER 2024-06-26 02:00 | Emergency (ER) | payer MEDICARE, SELFPAY ==
--- NOTE | 2024-06-26 02:02 | CT_ITS ---
PROCEDURE INFORMATION: Exam: CT Cervical Spine Without Contrast Exam date and time: 06/26/2024 2:31 AM Age: 74 years old Clinical indication: Injury or trauma; Fall; Other: Pain; Additional info: Fall no thinners TECHNIQUE: Imaging protocol: Computed tomography of the cervical spine without contrast. Radiation optimization: All CT scans at this facility use at least one of these dose optimization techniques: automated exposure control; mA and/or kV adjustment per patient size (includes targeted exams where dose is matched to clinical indication); or iterative reconstruction. COMPARISON: CT HEAD/BRAIN WO CON 06/26/2024 2:29 AM FINDINGS: Bones/joints: There are mild degenerative changes present. Normal alignment. No acute fractures. Lungs: Lung apices are normal. Soft tissues: Unremarkable. IMPRESSION: No acute injury.
--- NOTE | 2024-06-26 02:02 | CT_ITS ---
PROCEDURE INFORMATION: Exam: CT Head Without Contrast Exam date and time: 06/26/2024 2:29 AM Age: 74 years old Clinical indication: Injury or trauma; Fall; Other: Pain; Additional info: Fall no thinners TECHNIQUE: Imaging protocol: Computed tomography of the head without contrast. Radiation optimization: All CT scans at this facility use at least one of these dose optimization techniques: automated exposure control; mA and/or kV adjustment per patient size (includes targeted exams where dose is matched to clinical indication); or iterative reconstruction. COMPARISON: No relevant prior studies available. FINDINGS: Brain: Age appropriate atrophy and small vessel ischemic change. No evidence of intracranial hemorrhage, mass effect, midline shift or extra-axial fluid collections. Midline structures are normal. [place]connell-white matter differentiation is normal. Cerebral ventricles: No ventriculomegaly. Paranasal sinuses: Mucosal thickening in the ethmoid and maxillary sinuses. Mastoid air cells: Visualized mastoid air cells are well aerated. Bones: Unremarkable. No acute fracture. Soft tissues: Unremarkable. Vasculature: Carotid and vertebral artery atherosclerotic calcification. IMPRESSION: No acute intracranial injury.
--- NOTE | 2024-06-26 02:04 | HMH.EDGENADL ---
Discharge Plan Disposition Patient Disposition: Home, Self-Care Condition: Good Prescriptions Prescriptions: No Action trazodone 150 mg tablet 150 mg PO DAILY diazepam 5 mg tablet 5 mg PO BID PRN (Reason: Anxiety) metoprolol succinate 100 mg tablet extended release 24 hr 100 mg PO DAILY fluticasone propionate [Flonase Allergy Relief] 50 mcg/actuation spray,suspension 2 spray intranasal DAILY 90 Days Qty: 16 2RF Rx Instructions: administer into each nostril Breztri Aerosphere 160-9-4.8 mcg/actuation HFA aerosol inhaler 2 inh inhalation BID 90 Days Qty: 10.7 3RF albuterol sulfate 90 mcg/actuation HFA aerosol inhaler 2 inh inhalation Q6H PRN (Reason: shortness of breath or wheezing) 90 Days Qty: 8.5 2RF azelastine 137 mcg (0.1 %) spray,non-aerosol 2 spray intranasal HS 90 Days Qty: 30 2RF Rx Instructions: administer into each nostril irbesartan 75 mg Tablet 75 mg PO DAILY 30 Days Qty: 30 0RF ciprofloxacin HCl [Cipro] 500 mg tablet 500 mg PO Q12H 6 Days Qty: 12 0RF metronidazole 500 mg tablet 500 mg PO Q8H 6 Days Qty: 18 0RF Referrals Follow up/Referrals: Kelly Fuentes APRN [Primary Care Provider] - See instructions Activity Restrictions/Add. Instructions Additional Instructions/Restrictions: You were evaluated in the ER and are appropriate for discharge at this time. Please make an appoint with your primary care doctor for reevaluation in 2 to 3 days. Also follow closely with urology for your bladder stone. Take Tylenol or ibuprofen if needed for fever or bodyaches, monitor for new symptoms that may occur. Drink plenty of fluid. Immediately return to the ER with new, worsening, or otherwise concerning symptoms. Clinical Impressions Clinical Impression: Weakness Print Language Print Language: Dominican Discharge ED Provider: Sherin Ramey Adult HPI General Chief complaint: Fall Stated complaint: fall Time Seen by Provider: 06/26/24 02:02 History of Present Illness HPI narrative: 74-year-old male presents to the ER with EMS for concerns of generalized weakness. Patient reports he was admitted a few weeks ago with urinary infection and had similar symptoms at that time. He reports he could not get his legs under him tonight and he leaned against the wall while walking, he reports he did not fall. He did not strike his head or lose consciousness. He reports he feels generally weak, EMS reports a temperature of 100 axillary and route, blood glucose 137 and route, slightly hypertensive with systolics in the 170s. Patient states he only has pain when he is jostled around because of his known bladder stone. He states he has follow-up at scheduled in July with urology but is unable to get into them any sooner. Review of patient's previous admission H&P demonstrates he was admitted for urinary tract infection with elevated temperature but no esequiel fever, large bladder stone. He has had recurrent UTIs treated with Macrobid, Doxy, Cipro, cefdinir. I also reviewed records from urology with Dr. Thomas on 06/12/2024 which demonstrates a 2.[address] Thomas again referred patient to . Patient states he has no other complaints or concerns at this time, no pain, no injuries. He is concerned he is developing UTI again, but denies dysuria, no flank pain, nausea, vomiting, dizziness, numbness, tingling, no localizing weakness, chest pain, shortness of breath, cough, congestion, or any other associated symptoms Related Data Home Medications ?Medication ?Instructions ?Recorded ?Confirmed diazepam 5 mg tablet 5 mg PO BID PRN Anxiety 01/26/23 06/13/24 metoprolol succinate 100 mg 100 mg PO DAILY 01/26/23 06/13/24 tablet,extended release 24 hr trazodone 150 mg tablet 150 mg PO DAILY 01/26/23 06/13/24 Previous Rx's ?Medication ?Instructions ?Recorded ciprofloxacin HCl 500 mg tablet 500 mg PO Q12H 6 days #12 tabs 05/30/24 (Cipro) irbesartan 75 mg tablet 75 mg PO DAILY 30 days #30 tabs 05/30/24 metronidazole 500 mg tablet 500 mg PO Q8H 6 days #18 tabs 05/30/24 albuterol sulfate 90 mcg/actuation 2 inh inhalation Q6H PRN shortness 06/06/24 aerosol inhaler of breath or wheezing 90 days #8.5 grams azelastine 137 mcg (0.1 %) nasal 2 spray intranasal HS 90 days #30 06/06/24 spray mL budesonide 160 mcg-glycopyr 9 2 inh inhalation BID 90 days #10.7 06/06/24 mcg-formot 4.8 mcg/actuation HFA grams inhaler (Breztri Aerosphere) fluticasone propionate 50 2 spray intranasal DAILY 90 days 06/06/24 mcg/actuation nasal #16 grams spray,suspension (Flonase Allergy Relief) Allergies Allergy/AdvReac Type Severity Reaction Status Date / Time codeine Allergy Intermediate Other Verified 06/06/24 15:35 Iodinated Contrast Media Allergy Unknown Unknown Verified 06/06/24 15:35 allergy reaction [facility] Disclaimer: The information contained in this section may have been updated after the patient was seen, as this information can be updated by other users. Medical History Anxiety Weakness Abrasion of left shoulder Facial laceration COPD mixed type Allergic rhinitis Stopped smoking between 5 and 10 years ago Family history of asthma Dyspnea on exertion Asthma Surgical History History of hernia surgery History of tonsillectomy Family History Other No significant family history Social History Smoking Status: Former smoker how long ago did patient quit smokin alcohol intake: never current occupational status: retired Travel in the last 8 weeks: None Other Medical History Have you received the Flu Vaccine for this season: No Have you received the Pneumonia Vaccine: Yes ROS Obtained: Yes All systems reviewed & no additional complaints except as documented Constitutional Constitutional: Denies chills, Reports fever(s) (Mildly elevated temperature but no true fever), Denies headache(s) and Reports weakness (Generalized) Eyes Eyes: Denies change in vision ENT Ears, Nose, Mouth, and Throat: Denies dizziness, Denies headache(s), Denies nasal congestion and Denies sore throat Cardiovascular Cardiovascular: Denies chest pain, Denies dyspnea and Denies leg edema Respiratory Respiratory: Denies cough and Denies dyspnea Gastrointestinal Gastrointestingal: Reports abdominal pain (Mild to moderate, only associated with jostling, stable from prior); Denies constipation, diarrhea, nausea or vomiting Genitourinary Male Genitourinary: Denies difficulty urinating Musculoskeletal Musculoskeletal: Denies arthralgias, Denies myalgias, Denies numbness and Denies tingling Integumentary/Breasts Skin/Breast: Denies change in pigmentation Neurologic Neurologic: Denies dizziness, Denies headache(s), Denies numbness, Denies tingling and Reports weakness (Generalized) Physical Exam General General appearance: alert and in no apparent distress Head Head exam: atraumatic and normocephalic Eye Eye exam: Present PERRL and EOMI ENT ENT exam: Present mucous membranes moist Neck Neck exam: Present normal inspection and full ROM; Absent tenderness Chest Chest inspection: Present symmetric chest wall rise Respiratory Respiratory exam: Present normal lung sounds bilaterally; Absent respiratory distress, wheezes or stridor Cardiovascular Cardiovascular exam: Present regular rate and normal rhythm Abdominal Exam Abdominal exam: Present soft; Absent distention, tenderness, guarding or rebound Extremities Exam Extremities exam: Present full ROM Back Exam Back exam: Absent CVA tenderness (R) or CVA tenderness (L) Neurological Exam Neurological exam: Present alert and oriented X3; Absent motor sensory deficit (No localizing deficits) Psychiatric Psychiatric exam: Present normal affect and normal mood Skin Skin exam: Present warm and dry Medical Decision Making Medical Records Medical records reviewed: Yes I reviewed the patient's medical records. Screening: Per USPSTF and CDC recommendations, given the prevalence of disease in our region, it is our hospital?s policy to screen for HIV and viral Hepatitis for all patients aged 18 and over and those with ongoing risk factors. MR Comment: See HPI [place] Inquiry Pt receiving controlled substance: No Vital Signs: 06/26/24 02:09 06/26/24 04:06 06/26/24 04:30 Temperature 99.3 F 97.9 F Temperature Source Oral Oral Pulse Rate 74 Pulse Rate [Left] 84 Pulse Rate [Orthostatic Lying Right] 76 Pulse Rate [Orthostatic Sitting Right] 82 Pulse Rate [Orthostatic Standing Right] 84 Respiratory Rate 18 18 Blood Pressure 142/78 H Blood Pressure [Orthostatic Lying Right Arm] 146/102 H Blood Pressure [Orthostatic Sitting Right Arm] 154/101 H Blood Pressure [Orthostatic Standing Right Arm] 144/97 H Blood Pressure [Right Arm] 160/106 H Blood Pressure Mean [Right Arm] 124 Blood Pressure Source Automatic Cuff Blood Pressure Source [Right Arm] Automatic Cuff Blood Pressure Position Supine Blood Pressure Position [Right Arm] Sitting 02 Sat by Pulse Oximetry 95 Oxygen Delivery Method Room Air Room Air Lab Data Lab Results 06/26/24 02:00: WBC 12.1 H, RBC 5.46, Hgb 15.7, Hct 46.4, MCV 85.0, MCH 28.8, MCHC 33.9, RDW 14.5, Plt Count 146, MPV 8.9, Neut % (Auto) 83.6 H, Lymph % (Auto) 7.9 L, [place] % (Auto) 7.4, Eos % (Auto) 0.4, Baso % (Auto) 0.7, Neut # (Auto) 10.1 H, Lymph # (Auto) 1.0, [place] # (Auto) 0.9, Eos # (Auto) 0.1, Baso # (Auto) 0.1, PT 11.3, INR 1.01, Sodium 136, Potassium 4.0, Chloride 102, Carbon Dioxide 25, Anion Gap 13.0, BUN 11, Creatinine 1.10, Estimated Creat Clear 77, Estimated GFR 65, Est GFR ( Amer) 79, Glucose 112 H, Calcium 9.3, Total Bilirubin 1.1, AST 24, ALT 24, Alkaline Phosphatase 41, Troponin I < 0.01, Total Protein 6.1 L, Albumin 4.0, Globulin 2.1, Albumin/Globulin Ratio 1.9 H 06/26/24 02:14: Chlamy pneumoniae PCR Not detected, Adenovirus (PCR) Not detected, B. pertussis DNA (PCR) Not detected, Coronavirus OC43 (PCR) Not detected, Coronavirus HKU1 (PCR) Not detected, Coronavirus 229E (PCR) Not detected, SARS-CoV-2 (PCR) Not detected, Coronavirus NL63 (PCR) Not detected, Human Metapneumovir PCR Not detected, Influenza A (H1) PCR Not detected, Influ A (H1N1/09) PCR Not detected, Influenza A (H3) PCR Not detected, Influenza Type A (PCR) Not detected, Influenza Type B (PCR) Not detected, M. pneumoniae (PCR) Not detected, Parainfluenza 1 (PCR) Not detected, Parainfluenza 2 (PCR) Not detected, Parainfluenza 3 (PCR) Not detected, Parainfluenza 4 (PCR) Not detected, RSV (PCR) Not detected, Entero/Rhino (PCR) Not detected 06/26/24 03:35: Urine Color Yellow, Urine Appearance Slightly cloudy, Urine pH 6.0, Ur Specific [place] 1.025, Urine Protein Negative, Urine Glucose (UA) Negative, Urine Ketones Negative, Urine Blood 3+ A, Urine Nitrate Negative, Urine Bilirubin Negative, Urine Urobilinogen 0.2, Ur Leukocyte Esterase Negative, Urine RBC 20-50, Urine WBC Occasional, Ur Squamous Epith Cells None, Urine Bacteria Trace 06/26/24 02:00 06/26/24 02:00 Orders (Tests/Meds): ED MEDICATIONS Discontinued Medications Generic Name Dose Route Start Last Admin Trade Name Freq PRN Reason Stop Dose Admin Acetaminophen 1,000 mg 06/26/24 03:57 06/26/24 04:09 Acetaminophen 500mg Tab PO 06/26/24 03:58 1,000 mg ONCE ONE Administration ORDERS Category Date Time Status CT cervical spine wo con Stat Cat Scan 06/26/24 02:[address] head/brain wo con Stat Cat Scan 06/26/24 02:02 Completed CXR --portable [XR chest portable] Stat Exams 06/26/24 02:12 Completed CBC w/Auto Diff [Complete Blood Count Auto Diff] Stat Lab 06/26/24 02:00 Completed CMP [Comprehensive Metabolic Panel] Stat Lab 06/26/24 02:00 Completed Full Resp Panel w/COVID ([facility]) Routine Lab 06/26/24 02:14 Completed PT INR [Prothrombin Time INR] Stat Lab 06/26/24 02:00 Completed Trop I [Troponin I] Stat Lab 06/26/24 02:00 Completed Urinalysis and Microscopic Stat Lab 06/26/24 03:35 Completed ECG Request Stat Y 06/26/24 02:12 Ordered Medical Decision Narrative: In summary, this 74-year-old male with history of recurrent UTI and known bladder stone presents to the emergency department today with generalized weakness and very low energy mechanism fall. On initial evaluation patient is hemodynamically stable, afebrile, GCS 15, no neurologic abnormalities on exam, no findings of traumatic injury on exam, no tenderness of the abdomen or CVA tenderness, no C-spine tenderness. Differential diagnosis includes but is not limited to urinary tract infection, electrolyte abnormality, kidney dysfunction, patient has no symptoms of ureterolithiasis though this was also considered since he has known kidney stones, I also considered intracranial injury or cervical spine injury due to his fall and age, additionally possible patient is having abnormal presentation of cardiac event though I have low suspicion for this. With elevated temperature, borderline fever, considered pneumonia, viral infection. Based on these concerns, I ordered serum labs, urinalysis, CT imaging. ECG personally turbid demonstrates normal sinus rhythm, rate 84, normal axis, normal RI and QTc, no STEMI Patient received Tylenol for treatment. Labs personally reviewed demonstrate leukocytosis with WBC 12.1, no anemia, normal platelets, PT/INR normal, CMP nonactionable, initial troponin undetectably low less than 0.01 reassuring against acute cardiac pathology. Viral panel negative. XR personally interpreted demonstrates no acute intrathoracic abnormality. UA negative for findings of infection. CT imaging personally interpreted demonstrate no acute intracranial injury, no cervical spine injury, see radiology read for final interpretation. On reassessment patient is feeling at his baseline. Orthostatics were performed and reassuring, patient was also able to ambulate with his baseline amount of assistance. He was steady on his feet and patient and family have no further concerns. Patient and family were given strict instructions on symptomatic monitoring and management, follow-up instructions, and return precautions for the ER. They indicated understanding and the patient was discharged in stable condition. Critical Care Critical Care Time Critical Care Time: No
[2024-06-26 02:09] VITALS: BP 160/106; PULSE 84; RESP 18; TEMP 37.4; O2SAT 95; BMI 31.0
--- NOTE | 2024-06-26 02:12 | XR_ITS ---
PROCEDURE INFORMATION: Exam: XR Chest Exam date and time: 06/26/2024 2:17 AM Age: 74 years old Clinical indication: Other: Weakness; Additional info: General weak TECHNIQUE: Imaging protocol: Radiologic exam of the chest. Views: 1 view. COMPARISON: CT ABDOMEN PELVIS W CON 05/29/2024 8:59 AM FINDINGS: Lungs: Unremarkable. No consolidation. Pleural spaces: Unremarkable. No pleural effusion. No pneumothorax. Heart/Mediastinum: Unremarkable. No cardiomegaly. Bones/joints: Unremarkable. IMPRESSION: No acute findings.
[2024-06-26 02:15] LABS: Alanine Aminotransferase 24 U/L (12-78); Albumin/Globulin Ratio 1.9 (1.1-1.8); Alkaline Phosphatase 41 U/L (38-126); Aspartate Amino Transferase 24 U/L (17-59); Bilirubin,Total 1.1 mg/dl (0.2-1.3); Blood Urea Nitrogen 11 mg/dl (9-20); Calcium 9.3 mg/dl (8.4-10.2); Carbon Dioxide 25 mmol/L (22.0-30.0); Chloride 102 mmol/L (98-107); Creatinine Clearance Estimated 77 mL/min (50-200); Estimated Glomerular Filt Rate 65 ml/min (>60); GFR (African American) 79 ML/MIN (>60); Globulin 2.1 g/dL (1.3-3.2); Glucose 112 mg/dl (74-100); Sodium 136 mmol/L (136-145); Total Protein,Serum 6.1 g/dl (6.3-8.2)
[2024-06-26 02:16] LABS: INR 1.01 (0.9-1.1); Prothrombin Time 11.3 seconds (10.1-12.5)
--- NOTE | 2024-06-26 02:17 | ECG_ITS ---
APPROVED REPORT Exam: Resting ECG HR:84 bpm ECG Measurements Heart Rate 84 AXES [place] 145 P 52 QRSd 92 QRS 24 QT 363 T 57 QTc 404 Conclusion SINUS RHYTHM NORMAL ECG Electronically signed by : MYRIAM STUART, 06/26/2024 05:17:12
[2024-06-26 02:22] LABS: Adenovirus,PCR Not Detected (NotDetected); Bordetella Pertussis Not Detected (NotDetected); Chlamydophila Pneumoniae, PCR Not Detected (NotDetected); Coronavirus 19, PCR Not Detected (NotDetected); Coronavirus 229E Not Detected (NotDetected); Coronavirus NL63 Not Detected (NotDetected); Coronavirus OC43 Not Detected (NotDetected); Coronovirus HKU1,PCR Not Detected (NotDetected); Human Metapneumovirus Not Detected (NotDetected); Influenza A, PCR Not Detected (NotDetected); Influenza AH1, 2009 Not Detected (NotDetected); Influenza AH1, PCR Not Detected (NotDetected); Influenza AH3,PCR Not Detected (NotDetected); Influenza B, PCR Not Detected (NotDetected); Mycoplasma Pneumoniae, PCR Not Detected (NotDetected); Parainfluenza 1, PCR Not Detected (NotDetected); Parainfluenza 2, PCR Not Detected (NotDetected); Parainfluenza 3, PCR Not Detected (NotDetected); Parainfluenza 4, PCR Not Detected (NotDetected); Respiratory Syncytial Virus Not Detected (NotDetected); Rhinovirus/Enterovirus Not Detected (NotDetected)
[2024-06-26 02:38] LABS: Troponin I < 0.01 ng/ml (0.00-0.034)
[2024-06-26 02:44] LABS: Basophils # 0.1 K/mm3 (0-0.2); Basophils % 0.7 % (0.1-2.0); Eosinophils # 0.1 K/mm3 (0.0-0.4); Eosinophils % 0.4 % (0.1-12.0); Hematocrit 46.4 % (42.0-52.0); Hemoglobin 15.7 g/dL (14.1-18.0); Lymphocytes % 7.9 % (10-50); Mean Corpuscular HGB Conc 33.9 g/dL (31.8-35.4); Mean Corpuscular Hemoglobin 28.8 pg (27.0-31.2); Mean Platelet Volume 8.9 fl (7.4-10.4); Monocytes # 0.9 K/mm3 (0.1-1.0); Monocytes % 7.4 % (1.7-9.3); Neutrophils # 10.1 K/mm3 (1.8-7.8); Neutrophils % 83.6 % (37.0-80.0); Platelet Count 146 K/mm3 (142-424); Red Blood Count 5.46 M/mm3 (4.60-6.20); Red Cell Distribution Width 14.5 % (11.5-17.5); White Blood Count 12.1 K/mm3 (4.8-10.8)
--- NOTE | 2024-06-26 03:40 | PC.NURSE ---
Urine collected and sent to lab
[2024-06-26 03:42] LABS: Microscopic, Urine URINE MICROSCOPIC (MICROSCOPIC)
[2024-06-26 03:43] LABS: Bilirubin,Urine Negative (Negative); Blood, Urine 3+ (Negative); Color,Urine YELLOW (Yellow); Glucose,Urine (UA) Negative (Negative); Ketones,Urine Negative (Negative); Leukocyte Esterase,Urine Negative (Negative); Nitrate,Urine Negative (Negative); Protein,Urine Negative (Negative); Specific Gravity, Urine 1.025 (1.005-1.030); Urobilinogen,Urine 0.2 EU/dl (0.2)
[2024-06-26 03:45] LABS: Appearance,Urine Slightly Cloudy (Clear)
[2024-06-26 03:55] LABS: Bacteria,Urine Trace /lpf; RBC,Urine 20-50 #/hpf (0-3); WBC,Urine Occasional #/hpf (0-3)
--- NOTE | 2024-06-26 04:05 | PC.NURSE ---
pt ambulated without any distress. pt has a little bit of a shuffling gait but per the daughter that is his baseline to a previous injury.
[2024-06-26 04:06] VITALS: BP 144/97; BP 146/102; BP 154/101; PULSE 76; PULSE 82; PULSE 84
[2024-06-26] MEDS: ACETAMINOPHEN 500MG TAB 1000 MG PO (04:09)
[2024-06-26 04:30] VITALS: BP 142/78; PULSE 74; RESP 18; TEMP 36.6; O2SAT 96
== END 2024-06-26 04:38 | disposition home or self-care (01) ==
PROVIDERS: Emergency Provider Emergency Medicine; PCP Nurse Practitioner
DX: R53.1 Weakness (principal); R50.9 Fever, unspecified; I10 Essential (primary) hypertension; N21.0 Calculus in bladder
CPT/HCPCS: 70450; 71045; 72125; 80053; 81001; 84484; 85025; 85610; 87265; 87486; 87581; 87632; 87635; 93005; 99284

== ENCOUNTER 2024-08-02 09:22 | Observation (INO) | payer MEDICARE, OTHER, SELFPAY ==
[2024-08-02] VITALS (17 sets, daily range): BP systolic 147–253; BP diastolic 72–132; PULSE 50–66; RESP 10–20; TEMP 36.6–36.8; O2SAT 91–97; BMI 29.5; BMI 29.9
--- NOTE | 2024-08-02 09:25 | PC.NURSE ---
dr salamanca at bedside
--- NOTE | 2024-08-02 09:29 | ECG_ITS ---
APPROVED REPORT Exam: Resting ECG HR:64 bpm ECG Measurements Heart Rate 64 AXES [place] 142 P 79 QRSd 88 QRS 62 QT 405 T 71 QTc 414 Conclusion SINUS RHYTHM MINIMAL VOLTAGE CRITERIA FOR LVH, CONSIDER NORMAL VARIANT [MEETS CRITERIA IN ONE OF: R(aVL), S(V1), R(V5), R(V5/V6)+S(V1)] BORDERLINE ECG Electronically signed by : DANE RODRIGUEZ, 08/02/2024 14:32:23
--- NOTE | 2024-08-02 09:32 | CT_ITS ---
FINAL REPORT TECHNIQUE: Noncontrast CT exam of the abdomen and pelvis. Coronal and sagittal reconstructions were obtained and reviewed. This study was performed with techniques to keep radiation doses as low as reasonably achievable (ALARA). Individualized dose reduction techniques using automated exposure control or adjustment of mA and/or kV according to the patient''s size were employed. CLINICAL HISTORY: h/o bladder stone, chronic abd pain, HTN COMPARISON: 05/29/2024 FINDINGS: Abdomen: Lung bases are clear. There are numerous low-density liver masses, probably representing cysts and similar to the prior study. There is a nonobstructing lower pole left renal stone measuring approximately 7 mm. There is also a nonobstructing mid right renal stone measuring 3 mm. No obvious renal mass is present. No ureteral stones are present. Remaining solid organs are normal. The bowel is unremarkable. Pelvis: There is moderate sigmoid diverticulosis. The previously demonstrated inflammatory changes along the descending colon have resolved. There is are at least 2 bladder stones, largest measuring 27 mm. Mild prostate enlargement is noted. There is a small left inguinal hernia containing fat. No fluid collection or adenopathy is seen. IMPRESSION: Nonobstructing bilateral renal stones. Redemonstration of bladder stones. No acute findings. Reviewed, Interpreted and Dictated by Jose Alejandro Luu MD Transcribed by Cristina Solano Authenticated and . [facility]
--- NOTE | 2024-08-02 09:39 | ED_ITS ---
Discharge Plan Disposition Patient Disposition: Admitted Condition: Fair Clinical Impressions Clinical Impression: Hypertensive urgency, malignant, Bladder calculus, Calculus, ureteral, Hematuria Discharge ED Provider: Liane Nielsen General Adult HPI General Chief complaint: Recheck/Abnormal Lab/Rx Stated complaint: High BP, sent by Cardiology Time Seen by Provider: 08/02/24 09:31 History of Present Illness HPI narrative: This patient is a 74-year-old male with a history of hypertension, BPH, renal failure, bladder stone, COPD, and prior smoking history presenting to the emergency department for evaluation with concern for high blood pressure reading in cardiology clinic. Patient is awaiting an outpatient surgery for bladder stone removal at . He was evaluated at yesterday by anesthesia for his preop testing, where he was found to have significant high blood pressure and frequent headaches. He was deemed he is high risk for stroke or acute ACS related to his high blood pressure, so he was referred to cardiology for clearance for surgery. He went to cardiology clinic today and was noted to have severely elevated blood pressure despite taking his blood pressure medications this morning at 0700. Given this, he was sent to the hospital to be admitted for blood pressure control. Given his bladder stone that he is awaiting outpatient surgery for, hospital medicine wanted him evaluated in the ED to exclude acute life-threatening intra-abdominal pathology as a cause of his pain to make sure he did not need to be transferred for higher level of care first. Patient states that he does have intermittent recurrent abdominal pain related to his bladder stone, but he is not currently in pain at this time. He states that it only seems to painful when he eats and drinks, triggering the need to urinate. No current headache, chest pain, shortness of breath, or other issues either. His daughter reports that he likely would not tell us if he was having pain but she can tell that he is not been himself for several months now while dealing with all of these recurrent urinary tract infections and bladder issues. His surgery is tentatively scheduled for 08/22/2024. Related Data Home Medications ?Medication ?Instructions ?Recorded ?Confirmed metoprolol succinate 100 mg 100 mg PO DAILY 01/26/23 08/02/24 tablet,extended release 24 hr albuterol sulfate 90 mcg/actuation 2 inh inhalation Q6HP PRN 08/02/24 08/02/24 aerosol inhaler shortness of breath or wheezing budesonide 160 mcg-glycopyr 9 1 inh inhalation DAILY 08/02/24 08/02/24 mcg-formot 4.8 mcg/actuation HFA inhaler (Breztri Aerosphere) budesonide 160 mcg-glycopyr 9 2 inh inhalation BID 08/02/24 08/02/24 mcg-formot 4.8 mcg/actuation HFA inhaler (Breztri Aerosphere) irbesartan 75 mg tablet 150 mg PO DAILY 08/02/24 08/02/24 trazodone 150 mg tablet 150 mg PO HS 08/02/24 08/02/24 Previous Rx's ?Medication ?Instructions ?Recorded azelastine 137 mcg (0.1 %) nasal 2 spray intranasal HS 90 days #30 06/06/24 spray mL fluticasone propionate 50 2 spray intranasal DAILY 90 days 06/06/24 mcg/actuation nasal #16 grams spray,suspension (Flonase Allergy Relief) Allergies Allergy/AdvReac Type Severity Reaction Status Date / Time codeine Allergy Intermediate Other Verified 08/02/24 09:48 Iodinated Contrast Media Allergy Unknown Unknown Verified 08/02/24 08:30 allergy reaction [facility] Disclaimer: The information contained in this section may have been updated after the patient was seen, as this information can be updated by other users. Medical History Anxiety Weakness Abrasion of left shoulder Facial laceration COPD mixed type Allergic rhinitis Stopped smoking between 5 and 10 years ago Family history of asthma Dyspnea on exertion Asthma Surgical History History of hernia surgery History of tonsillectomy Family History Other No significant family history Social History (Updated 08/02/24 @ 12:16 by Bisi Andino RN) Smoking Status: Former smoker how long ago did patient quit smokin alcohol intake: never current occupational status: retired Travel in the last 8 weeks: None Have you lived/traveled outside US in past 30 days?: No Contact w/someone who lives/traveled outside US past 30 days?: No Exposure to someone with infectious disease in past 14 days?: No Do you have a fever (greater than 100.4 F or 38 C)?: No Have you tested positive for COVID-19: No Exposed to someone with COVID-19 in past 14 days?: No Do you have a sore throat?: No Do you have a cough?: No Do you have any weakness?: No Do you have any diarrhea?: No Are you experiencing any unusual bleeding?: No Do you have any muscle aches/pain?: No Do you have any abdominal pain?: No Are you experiencing loss of taste or smell?: No Other Medical History Have you received the Flu Vaccine for this season: No Have you received the Pneumonia Vaccine: Yes ROS Obtained: Yes All systems reviewed & no additional complaints except as documented Physical Exam General General appearance: alert and in no apparent distress Head Head exam: atraumatic and normocephalic Eye Eye exam: Present normal appearance, PERRL and EOMI ENT ENT exam: Present normal exam, normal oropharynx, mucous membranes moist and normal external ear exam Neck Neck exam: Present normal inspection, full ROM and trachea midline; Absent tenderness Chest Chest inspection: Present normal inspection and symmetric chest wall rise; Absent tenderness Respiratory Respiratory exam: Present normal lung sounds bilaterally; Absent respiratory distress, wheezes, stridor or accessory muscle use Cardiovascular Cardiovascular exam: Present regular rate and normal rhythm Abdominal Exam Abdominal exam: Present soft; Absent distention, tenderness or guarding Extremities Exam Extremities exam: Present normal inspection, full ROM and normal capillary refill; Absent tenderness or edema Back Exam Back exam: Present normal inspection and full ROM; Absent tenderness Neurological Exam Neurological exam: Present alert, oriented X3, CN II-XII intact and normal gait; Absent motor sensory deficit Psychiatric Psychiatric exam: Present normal affect and normal mood Skin Skin exam: Present warm and dry Medical Decision Making Medical Records Medical records reviewed: Yes I reviewed the patient's medical records. Screening: Per USPSTF and CDC recommendations, given the prevalence of disease in our region, it is our hospital?s policy to screen for HIV and viral Hepatitis for all patients aged 18 and over and those with ongoing risk factors. [place] Inquiry Pt receiving controlled substance: No Vital Signs: 08/02/24 09:23 08/02/24 09:39 08/02/24 09:47 Temperature 97.8 F Temperature Source Oral Pulse Rate 60 Pulse Rate [Left Radial] 66 Respiratory Rate 16 20 16 Blood Pressure 230/108 H 195/110 H Blood Pressure [Right Arm] 253/132 H Blood Pressure Mean [Right Arm] 172 02 Sat by Pulse Oximetry 95 96 Oxygen Delivery Method Room Air 08/02/24 10:03 08/02/24 10:05 08/02/24 10:16 Temperature Temperature Source Pulse Rate 56 L 60 Pulse Rate [Left Radial] Respiratory Rate 13 12 15 Blood Pressure 207/111 H 200/99 H 181/102 H Blood Pressure [Right Arm] Blood Pressure Mean [Right Arm] 02 Sat by Pulse Oximetry 97 95 Oxygen Delivery Method Room Air 08/02/24 10:30 08/02/24 10:46 08/02/24 11:00 Temperature Temperature Source Pulse Rate 53 L 51 L Pulse Rate [Left Radial] Respiratory Rate 11 L 10 L Blood Pressure 180/100 H 183/94 H Blood Pressure [Right Arm] Blood Pressure Mean [Right Arm] 02 Sat by Pulse Oximetry 95 91 L Oxygen Delivery Method Room Air Room Air 08/02/24 11:01 08/02/24 11:05 Temperature 98.0 F Temperature Source Pulse Rate 53 L 53 L Pulse Rate [Left Radial] Respiratory Rate 14 14 Blood Pressure 170/91 H 170/91 H Blood Pressure [Right Arm] Blood Pressure Mean [Right Arm] 02 Sat by Pulse Oximetry 95 Oxygen Delivery Method Room Air Room Air Lab Data Lab results reviewed: Yes I reviewed the patient's lab results. Lab Results 08/02/24 09:36: WBC 5.6, RBC 5.95, Hgb 16.6, Hct 49.3, MCV 82.9, MCH 27.9, MCHC 33.7, RDW 13.5, Plt Count 158, MPV 9.7, Neut % (Auto) 62.3, Lymph % (Auto) 23.3, [place] % (Auto) 8.9, Eos % (Auto) 3.8, Baso % (Auto) 1.3, Neut # (Auto) 3.5, Lymph # (Auto) 1.3, [place] # (Auto) 0.5, Eos # (Auto) 0.2, Baso # (Auto) 0.1, Sodium 135 L, Potassium 4.1, Chloride 103, Carbon Dioxide 29, Anion Gap 7.1, BUN 11, Creatinine 1.10, Estimated Creat Clear 76, Estimated GFR 65, Est GFR ( Amer) 79, Glucose 95, Calcium 9.6, Total Bilirubin 1.1, AST 32, ALT 25, Alkaline Phosphatase 54, Troponin I 0.01, Total Protein 6.7, Albumin 4.4, Globulin 2.3, A lbumin/Globulin Ratio 1.9 H, Lipase 65 08/02/24 10:04: Lactate 1.0 08/02/24 10:15: Urine Color Yellow, Urine Appearance Clear, Urine pH 6.0, Ur Specific [place] 1.015, Urine Protein Negative, Urine Glucose (UA) Negative, Urine Ketones Negative, Urine Blood 1+ A, Urine Nitrate Negative, Urine Bilirubin Negative, Urine Urobilinogen 0.2, Ur Leukocyte Esterase Negative, Urine RBC 10-20, Urine WBC Occasional, Ur Squamous Epith Cells Occasional, Urine Bacteria None 08/02/24 09:36 08/02/24 09:36 Orders (Tests/Meds): ED MEDICATIONS Generic Name Dose Route Start Last Admin Trade Name Freq PRN Reason Stop Dose Admin Nifedipine 60 mg 08/02/24 13:15 08/02/24 13:19 Nifedipine Xl 30mg Tablet PO 09/01/24 13:14 60 mg DAILY JUANITA Administration Discontinued Medications Generic Name Dose Route Start Last Admin Trade Name Freq PRN Reason Stop Dose Admin Acetaminophen 1,000 mg 08/02/24 09:32 08/02/24 09:45 Acetaminophen 500mg Tab PO 08/02/24 09:33 1,000 mg ONCE ONE Administration Morphine Sulfate 4 mg 08/02/24 09:32 08/02/24 09:45 Morphine 4mg/Ml Syringe IV 08/02/24 09:33 4 mg ONCE ONE Administration Ondansetron HCl 4 mg 08/02/24 09:32 08/02/24 09:45 Ondansetron 4mg/2ml Vial IV 08/02/24 09:33 4 mg ONCE ONE Administration ORDERS Category Date Time Status CT abdomen pelvis wo con Stat Cat Scan 08/02/24 09:32 Completed Complete Blood Count Auto Diff Stat Lab 08/02/24 09:36 Completed Comprehensive Metabolic Panel Stat Lab 08/02/24 09:36 Completed Lactic Acid Stat Lab 08/02/24 10:04 Completed Lipase Stat Lab 08/02/24 09:36 Completed Trop I [Troponin I] Stat Lab 08/02/24 09:36 Completed Troponin I Q3H Lab 08/02/24 12:48 Completed Troponin I Q3H Lab 08/02/24 15:45 Ordered UA [Urinalysis and Microscopic] Stat Lab 08/02/24 10:15 Completed Urine Culture Stat Micro 08/02/24 10:15 Received ECG Data Tracing #1: I reviewed this ECG and interpreted as documented below: Normal sinus rhythm with a ventricular of [address] changes concerning for STEMI. Normal axis and intervals. ECG initial impression date: 08/02/24 ECG initial impression time: 09:33 Medical Decision Narrative: In summary, this patient is a 74-year-old male presenting to the Emergency Department for evaluation of high blood pressure readings in cardiology clinic. He is awaiting outpatient surgery for bladder stone and ureteral stone. Differential diagnoses considered include but are not limited to secondary hypertension related to pain, malignant hypertension, renal artery stenosis, ACS, hypertensive urgency, hypertensive emergency. Ruling out the most morbid conditions drove assessment. It should be noted patient's history includes hypertension which is not at goal therapy. This complicates all aspects of care by increasing patient's risk for morbidity. I reviewed patient's past medical records and noted evaluations for recurrent UTIs, referral to for bladder stone and ureteral stone, planned outpatient surgery at as detailed in HPI. On exam, the patient is sitting upright in bed in no acute distress. He is profoundly hypertensive with blood pressure 253/132. He declines pain or any symptoms at this time and appears to be completely asymptomatic, but his daughter reports that he likely would not tell us if he was having significant pain. Heart rate normal in the 60s. He reports he has already taken his blood pressure medications today. Workup included CBC, CMP, lactic acid, urinalysis, urine culture, CT abdomen pelvis without IV contrast. He was given IV morphine and Zofran as well as oral Tylenol to assess for improvement in his blood pressure related to pain control in case he is having any acute pain. I independently interpreted CT scan prior to the radiologist read and noted changed appearance of bladder stone, left ureteral stone. Please see their read for final interpretation. Labs were obtained that demonstrated no leukocytosis, reassuring chemistry without change in creatinine, urine that is positive for blood but no infection. Patient had good improvement in his blood pressure after administration of morphine and Tylenol for pain control with systolics in the 180s on reassessment. Ultimately, I had an interactive discussion with Dr. Castellano the hospitalist who ended up admitting the patient for further evaluation and management of hypertensive urgency. Patient was admitted in stable condition. Critical Care Critical Care Time Critical Care Time: No
[2024-08-02] MEDS: ACETAMINOPHEN 500MG TAB 1000 MG PO (09:45)
[2024-08-02] MEDS: ONDANSETRON 4MG/2ML VIAL 4 MG IV (09:45)
[2024-08-02] MEDS: MORPHINE 4MG/ML SYRINGE 4 MG IV (09:45)
[2024-08-02 09:52] LABS: Albumin Level 4.4 g/dl (3.5-5.0); Chloride 103 mmol/L (98-107); Potassium 4.1 mmoL/L (3.5-5.1); Sodium 135 mmol/L (136-145)
--- NOTE | 2024-08-02 09:53 | PC.NURSE ---
PT TO CT
[2024-08-02 09:55] LABS: Alanine Aminotransferase 25 U/L (12-78); Albumin/Globulin Ratio 1.9 (1.1-1.8); Alkaline Phosphatase 54 U/L (38-126); Anion Gap 7.1 mEq/L (5-15); Aspartate Amino Transferase 32 U/L (17-59); Bilirubin,Total 1.1 mg/dl (0.2-1.3); Blood Urea Nitrogen 11 mg/dl (9-20); Calcium 9.6 mg/dl (8.4-10.2); Carbon Dioxide 29 mmol/L (22.0-30.0); Creatinine Clearance Estimated 76 mL/min (50-200); Estimated Glomerular Filt Rate 65 ml/min (>60); GFR (African American) 79 ML/MIN (>60); Globulin 2.3 g/dL (1.3-3.2); Glucose 95 mg/dl (74-100); Lipase 65 U/L (23-300); Total Protein,Serum 6.7 g/dl (6.3-8.2)
[2024-08-02 10:00] LABS: Hematocrit 49.3 % (42.0-52.0); Hemoglobin 16.6 g/dL (14.1-18.0); Mean Corpuscular HGB Conc 33.7 g/dL (31.8-35.4); Mean Corpuscular Hemoglobin 27.9 pg (27.0-31.2); Mean Corpuscular Volume 82.9 fl (80-94); Red Blood Count 5.95 M/mm3 (4.60-6.20); White Blood Count 5.6 K/mm3 (4.8-10.8)
[2024-08-02 10:01] LABS: Basophils # 0.1 K/mm3 (0-0.2); Basophils % 1.3 % (0.1-2.0); Eosinophils # 0.2 K/mm3 (0.0-0.4); Eosinophils % 3.8 % (0.1-12.0); Lymphocytes # 1.3 K/mm3 (0.7-4.5); Lymphocytes % 23.3 % (10-50); Mean Platelet Volume 9.7 fl (7.4-10.4); Monocytes # 0.5 K/mm3 (0.1-1.0); Monocytes % 8.9 % (1.7-9.3); Neutrophils # 3.5 K/mm3 (1.8-7.8); Neutrophils % 62.3 % (37.0-80.0); Platelet Count 158 K/mm3 (142-424); Red Cell Distribution Width 13.5 % (11.5-17.5)
--- NOTE | 2024-08-02 10:11 | HMH.PHAINT1 ---
Pharmacy Intervention Comments: MEDICATION RECONCILIATION COMPLETED ON PATIENT USING EXTERNAL FILL HISTORY FROM PHARMACY. -JAMARCUS ASHTON, SAÚLD
[2024-08-02 10:18] LABS: Microscopic, Urine URINE MICROSCOPIC (MICROSCOPIC)
[2024-08-02 10:26] LABS: Appearance,Urine CLEAR (Clear); Bilirubin,Urine Negative (Negative); Blood, Urine 1+ (Negative); Color,Urine YELLOW (Yellow); Glucose,Urine (UA) Negative (Negative); Ketones,Urine Negative (Negative); Leukocyte Esterase,Urine Negative (Negative); Nitrate,Urine Negative (Negative); Protein,Urine Negative (Negative); Specific Gravity, Urine 1.015 (1.005-1.030); Urobilinogen,Urine 0.2 EU/dl (0.2)
--- NOTE | 2024-08-02 10:34 | PC.NURSE ---
call made to senior data warehouse developer for bed assignment
[2024-08-02 10:37] LABS: Troponin I 0.01 ng/ml (0.00-0.034)
[2024-08-02 10:40] LABS: Squamous Epithelial Cell,Urine Occasional #/hpf (0-5); WBC,Urine Occasional #/hpf (0-3)
--- NOTE | 2024-08-02 10:48 | PC.NURSE ---
report called to charly on second floor
--- NOTE | 2024-08-02 10:55 | P.HP_ITS ---
History of Present Illness *Admission Date: 08/02/24 *Reason for visit:: Hypertension *History of present illness: Mr. Junior is a 74-year-old male with history of hypertension, BPH, kidney and bladder stones, COPD. Initially presented to cardiology today for clearance for surgical removal of kidney and bladder stones. During preop testing yesterday at , found to be severely hypertensive. Sent to cardiology for clearance. On arrival to cardiology clinic, patient found to have systolics above 200. Questionable complaint of intermittent abdominal and chest pain. Sent to the ER for further evaluation. On evaluation, CT obtained showing no new findings. Diverticulitis that led to previous admission has resolved. Kidney stone stable. No blockage. Labs relatively unremarkable with no signs of infection. Blood pressure severely elevated however. Medicine consulted for admission and further management to assist with optimization of blood pressure treatment. On arrival to the floor, patient does state that he gets ankle from doctors. Denies any headache, confusion, syncope, chest pain at this time. No shortness of breath. Lying flat on exam without difficulty. His daughter reports that he likely would not tell us if he was having pain but she can tell that he is not been himself for several months now while dealing with all of these recurrent urinary tract infections and bladder issues. His surgery is tentatively scheduled for 08/22/2024. [facility] Disclaimer: The information contained in this section may have been updated after the patient was seen, as this information can be updated by other users. Medical History Anxiety Weakness Abrasion of left shoulder Facial laceration COPD mixed type Allergic rhinitis Stopped smoking between 5 and 10 years ago Family history of asthma Dyspnea on exertion Asthma Surgical History History of hernia surgery History of tonsillectomy Family History Other No significant family history Social History Smoking Status: Former smoker how long ago did patient quit smokin alcohol intake: never current occupational status: retired Travel in the last 8 weeks: None Have you lived/traveled outside US in past 30 days?: No Contact w/someone who lives/traveled outside US past 30 days?: No Exposure to someone with infectious disease in past 14 days?: No Do you have a fever (greater than 100.4 F or 38 C)?: No Have you tested positive for COVID-19: No Exposed to someone with COVID-19 in past 14 days?: No Do you have a sore throat?: No Do you have a cough?: No Do you have any weakness?: No Do you have any diarrhea?: No Are you experiencing any unusual bleeding?: No Do you have any muscle aches/pain?: No Do you have any abdominal pain?: No Are you experiencing loss of taste or smell?: No Other Medical History Have you received the Flu Vaccine for this season: No Have you received the Pneumonia Vaccine: Yes Review of Systems Review of Systems Review of systems (narrative): 14 point review of systems performed, pertinent positives and negatives as per HPI Meds Home Medications and Allergies Home Medications ?Medication ?Instructions ?Recorded ?Confirmed ?Type metoprolol succinate 100 mg 100 mg PO DAILY 01/26/23 08/02/24 History tablet,extended release 24 hr azelastine 137 mcg (0.1 %) nasal 2 spray intranasal HS 90 days #30 06/06/24 08/02/24 Rx spray mL fluticasone propionate 50 2 spray intranasal DAILY 90 days 06/06/24 08/02/24 Rx mcg/actuation nasal #16 grams spray,suspension (Flonase Allergy Relief) albuterol sulfate 90 mcg/actuation 2 inh inhalation Q6HP PRN 08/02/24 08/02/24 History aerosol inhaler shortness of breath or wheezing budesonide 160 mcg-glycopyr 9 1 inh inhalation DAILY 08/02/24 08/02/24 History mcg-formot 4.8 mcg/actuation HFA inhaler (Breztri Aerosphere) budesonide 160 mcg-glycopyr 9 2 inh inhalation BID 08/02/24 08/02/24 History mcg-formot 4.8 mcg/actuation HFA inhaler (Breztri Aerosphere) irbesartan 75 mg tablet 150 mg PO DAILY 08/02/24 08/02/24 History trazodone 150 mg tablet 150 mg PO HS 08/02/24 08/02/24 History New Prescriptions to Start Prescriptions: Allergies Allergy/AdvReac Type Severity Reaction Status Date / Time codeine Allergy Intermediate Other Verified 08/02/24 09:48 Iodinated Contrast Media Allergy Unknown Unknown Verified 08/02/24 08:30 allergy reaction Exam Data for Last 24 hours Vital signs and Labs for Last 24 Hours: Temp Pulse Resp BP Pulse Ox O2 Del Method 97.8 F 53 L 11 L 180/100 H 95 Room Air 08/02/24 09:23 08/02/24 10:30 08/02/24 10:30 08/02/24 10:30 08/02/24 10:30 08/02/24 10:30 Laboratory Results - last 24 hr 08/02/24 09:36: WBC 5.6, RBC 5.95, Hgb 16.6, Hct 49.3, MCV 82.9, MCH 27.9, MCHC 33.7, RDW 13.5, Plt Count 158, MPV 9.7, Neut % (Auto) 62.3, Lymph % (Auto) 23.3, [place] % (Auto) 8.9, Eos % (Auto) 3.8, Baso % (Auto) 1.3, Neut # (Auto) 3.5, Lymph # (Auto) 1.3, [place] # (Auto) 0.5, Eos # (Auto) 0.2, Baso # (Auto) 0.1, Sodium 135 L, Potassium 4.1, Chloride 103, Carbon Dioxide 29, Anion Gap 7.1, BUN 11, Creatinine 1.10, Estimated Creat Clear 76, Estimated GFR 65, Est GFR ( Amer) 79, Glucose 95, Calcium 9.6, Total Bilirubin 1.1, AST 32, ALT 25, Alkaline Phosphatase 54, Troponin I 0.01, Total Protein 6.7, Albumin 4.4, Globulin 2.3, Albumin/Globulin Ratio 1.9 H, Lipase 65 08/02/24 10:04: Lactate 1.0 08/02/24 10:15: Urine Color Yellow, Urine Appearance Clear, Urine pH 6.0, Ur Specific [place] 1.015, Urine Protein Negative, Urine Glucose (UA) Negative, Urine Ketones Negative, Urine Blood 1+ A, Urine Nitrate Negative, Urine Bilirubin Negative, Urine Urobilinogen 0.2, Ur Leukocyte Esterase Negative, Urine RBC 10-20, Urine WBC Occasional, Ur Squamous Epith Cells Occasional, Urine Bacteria None I & O for Last 24 hours: Intake & Output 07/30/24 07/31/24 08/01/24 08/02/24 23:59 23:59 23:59 23:59 Weight 93.44 kg Constitutional Constitutional: no acute distress, chronically ill appearing and cooperative *Routine HEENT Exam Head: Present normocephalic Eye: Present EOMI and PERRL ENT: Present mucous membranes moist *Routine Neck Exam Neck: Present supple; Absent lymphadenopathy *Routine Respiratory Exam Respiratory: Present prolonged expiratory phase and wheezes; Absent respiratory distress, rhonchi or crackles *Routine Cardiovascular Exam Cardiovascular: Present RRR *Routine Abdominal Exam Abdominal: Present soft and normoactive bowel sounds; Absent tenderness *Routine Rectal Exam Rectal:: deferred *Routine Genitalia Exam Genitalia:: deferred *Routine Extremities Exam Extremities: Absent cyanosis, clubbing or edema *Routine Skin Exam Skin: Present warm; Absent rash *Routine Neurological Exam Neurological: Present alert, oriented X3, altered mental status and moving all extremities Assessment and Plan *Assessment and plan (1) Hypertensive urgency, malignant: Status: Acute Category: Medical Code(s): I16.0 - Hypertensive urgency (2) COPD mixed type: Status: Acute Category: Medical Code(s): J44.9 - Chronic obstructive pulmonary disease, unspecified (3) Bladder stone: Status: Acute Category: Medical Code(s): N21.0 - Calculus in bladder (4) Anxiety: Status: Inactive Category: Medical Code(s): F41.9 - Anxiety disorder, unspecified (5) Calculus, ureteral: Status: Acute Category: Medical Code(s): N20.1 - Calculus of ureter (6) BPH (benign prostatic hyperplasia): Status: Acute Category: Medical Code(s): N40.0 - Benign prostatic hyperplasia without lower urinary tract symptoms Plan 74-year-old male with history of COPD who presents from cardiology clinic with severe hypertension. Evaluated in the ER due to suspected abdominal pain initially. Stone stable with no obstruction. Diverticulitis resolved. Discussed case with ER physician, request admission for aggressive treatment of blood pressure as a systolics are above 200. I agreed to admit for further treatment. Cardiology consulted to assist with care. Problems addressed as follows: Malignant hypertension -Blood pressure severely elevated with systolics above 200. Cardiology consulted to assist with care. -Administered nifedipine 60 mg once on admission. Also treated pain with morphine. Systolic blood pressure improved to the 170s. -Increase irbesartan to 300 mg daily. Continue metoprolol 100 mg succinate daily -Monitor for improvement overnight. Needing preop clearance to have bladder stone and kidney stones removed. -Echocardiogram obtained, read pending. Bladder and renal calculi -CT of abdomen obtained in the ER, per my review, no signs of diverticulitis. Stones in the kidneys and bladder are stable. Has 2 cm bladder stone that is nonobstructing. -No indication for antibiotics at this time. - White count normal at 5.6, kidney function normal with creatinine 1.1, BUN 11. Electrolytes normal potassium 4.1. Urine unremarkable. 10-20 red cells but no signs of infection. -Repeat CBC, CMP, magnesium ordered for the morning. COPD: Continue albuterol inhaler as needed every 6 hours. Stable on room air. Sleep disorder: Continue trazodone 150 mg nightly Anxiety: Continue Valium 5 mg twice daily as needed Full code Regular diet
--- NOTE | 2024-08-02 11:08 | PC.NURSE ---
arrived by w/c from ED
--- NOTE | 2024-08-02 12:54 | CA_ITS ---
APPROVED REPORT EXAM: Comprehensive 2D, Doppler, and color-flow Echocardiogram Molding Engineer: Alicia Arechiga CRT Ht: 5 ft 10 in Wt: 209lbs BSA: 2.13 BP: 180/100 mmHg Indications: Hypertension/HDD, COPD, Renal failure, pre- op bladder stone 2D Dimensions Left Atrium 5.05 cm LVEF (Tony's) 66.80 % LVOT 1.90 cm (M/F) 1.5-2.5 LV Volume 121.20 mL LA Volume 84.60 mL LA Volume Index 39.70 mL/m2 (M/F) 16-34 EF AP4 70.80 % EF AP2 64.0 % EF BP 66.8 % GL Strain -19.9 % M-Mode Dimensions RVDd 2.66 cm (0.9-2.6) LVDd 5.44 cm (3.5-5.7) Ao Diam 3.47 cm (2.0-3.7) LVDs 2.64 cm (3.5-5.7) IVSd 1.48 cm (0.6-1.1) PWd 0.99 cm (0.6-1.1) EF (Teich) 82.20% FS 51.50% EDV (Teich) 143.70 mL TAPSE 1.03 (<1.7) ESV (Teich) 25.60 mL LV Diastology E Decel Time 200 (160-240 msec) E/A Ratio 0.75 MED E' 5.9 (>= 7 cm/sec) MED A' 12.60 cm/s E'/MED E' Ratio 11.66 (<= 14) LAT E' 8.2 (>= 10 cm/sec) LAT A' 11.00 cm/s E/LAT E' Ratio 8.39 (<= 14) Aortic Valve LVOT Max 151.0 (70-110 cm/s) SARA Index 1.24 cm2/m2 LVOT VTI 34.52 cm AoV Peak Frantz. 191.0 (50-130 cm/s) AI PHT 780.00 ms AO Peak GR. 11.50 mmHg AO Mean GR. 7.00 (<5 mmHg) AO VTI 37.0 (18-25 cm) SARA (VTI) 2.65 (2.5-4.5 cm2) Mitral Valve MV E Max Frantz. 69.0 (40-130 cm/s) MV A Velocity 92.0 (40-130 cm/s) E/A Ratio 0.75 MV Decel. Time 200 (160-240 ms) MV PHT 58.0 ms Tricuspid Valve TR P. Velocity 300.00 cm/s RAP Estimate 10.00 mmHg RVSP 46.00 mmHg Left Ventricle The left ventricle is normal size. The left ventricular systolic function is normal. The left ventricular ejection fraction is within the normal range. Proximal septal thickening is noted. There is normal LV segmental wall motion. Transmitral Doppler flow pattern suggests impaired LV relaxation. LVEF is 60%. Right Ventricle The right ventricle is mildly dilated. The right ventricular systolic function is normal. Atria The left atrium is moderately dilated. Right atrium is mildly dilated. There is no Doppler evidence of interatrial shunt. Aortic Valve The aortic valve is mildly thickened. There is no aortic valvular stenosis. Mild aortic regurgitation. Mitral Valve The mitral valve is normal in structure. No evidence of mitral valve stenosis. Trace mitral regurgitation. Tricuspid Valve Tricuspid valve is grossly normal in structure and function. Mild tricuspid regurgitation. RVSP is 35-40 mmHg. Pulmonic Valve The pulmonary valve is normal in structure. Trace pulmonic regurgitation. Great Vessels The aortic root is normal in size. The ascending aorta is normal in size. IVC is normal in size and collapses >50% with inspiration. Pericardium There is no pericardial effusion. Multiple anechoic well-circumscribed hepatic masses are incidentally noted, likely representing hepatic cysts. The largest measures 4.1 cm in diameter. Other Information Study Quality: Fair Conclusion Normal biventricular systolic function. Mild RV dilation. Mild AI, mild TR. RVSP 35-40 mmHg. Multiple anechoic well-circumscribed hepatic masses are incidentally noted, likely representing hepatic cysts. The largest measures 4.1 cm in diameter. Correlation with recent or new CT abdomen and/or abdominal ultrasound is recommended. Electronically signed by : Malka Tirado MD 08/03/2024 11:58:29
[2024-08-02] MEDS: NIFEdipine XL 30MG TABLET 60 MG PO (13:19)
[2024-08-02 13:36] LABS: Troponin I 0.01 ng/ml (0.00-0.034)
[2024-08-02 16:36] LABS: Troponin I < 0.01 ng/ml (0.00-0.034)
--- NOTE | 2024-08-02 18:29 | PC.NURSE ---
AOX4, ABLE TO MAKE NEEDS KNOWN TO STAFF. NOT REQUIRING O2 SUPPORT. HAS DENIED PAIN SINCE ARRIVAL TO M/S DEPT. CURRENTLY IN ROOM VISITING WITH FAMILY. AMBULATES WITH STANDBY ASSIST AND TOLERATES WELL.
[2024-08-02] MEDS: TRAZODONE 50MG TABLET 150 MG PO (20:08)
[2024-08-02] MEDS: AZELASTINE NASAL SPRAY 30ML BOTTLE NS (20:08)
[2024-08-02] MEDS: HYDRALAZINE 20MG/ML VIAL 10 MG IV (20:09)
[2024-08-03] VITALS (7 sets, daily range): BP systolic 119–150; BP diastolic 64–82; PULSE 56–97; RESP 16–18; TEMP 36.3–36.8; O2SAT 91–93; BMI 30.5
--- NOTE | 2024-08-03 05:12 | PC.NURSE ---
Alert and oriented. Standby assist in room. Room air throughout might. No complaints from patient. Sinus moncho on tele. BP earlier in shift elevated, PRN med given per OCT. BP throughout night stable. Call light in reach.
[2024-08-03 07:12] LABS: Albumin Level 4.1 g/dl (3.5-5.0); Chloride 104 mmol/L (98-107); Sodium 134 mmol/L (136-145)
[2024-08-03 07:13] LABS: Potassium 3.9 mmoL/L (3.5-5.1)
[2024-08-03 07:15] LABS: Alanine Aminotransferase 23 U/L (12-78); Albumin/Globulin Ratio 1.9 (1.1-1.8); Alkaline Phosphatase 54 U/L (38-126); Anion Gap 4.9 mEq/L (5-15); Aspartate Amino Transferase 27 U/L (17-59); Bilirubin,Total 0.9 mg/dl (0.2-1.3); Blood Urea Nitrogen 11 mg/dl (9-20); Carbon Dioxide 29 mmol/L (22.0-30.0); Creatinine Clearance Estimated 78 mL/min (50-200); Estimated Glomerular Filt Rate 65 ml/min (>60); GFR (African American) 79 ML/MIN (>60); Globulin 2.2 g/dL (1.3-3.2); Total Protein,Serum 6.3 g/dl (6.3-8.2)
[2024-08-03 07:16] LABS: Calcium 9.2 mg/dl (8.4-10.2); Glucose 94 mg/dl (74-100)
[2024-08-03] MEDS: METOPROLOL SUCCINATE XL 100MG TABLET 100 MG PO (08:03)
[2024-08-03] MEDS: NIFEdipine XL 30MG TABLET 60 MG PO (08:03)
[2024-08-03] MEDS: IRBESARTAN 300MG TABLET 300 MG PO (08:03)
[2024-08-03] MEDS: FLUTICASONE PROP 50MCG NASAL SPRAY 16GM 2 SPRAY NS (08:03)
[2024-08-03 08:15] LABS: Hematocrit 49.8 % (42.0-52.0); Hemoglobin 16.5 g/dL (14.1-18.0); Mean Corpuscular HGB Conc 33.1 g/dL (31.8-35.4); Mean Corpuscular Volume 84.4 fl (80-94); Mean Platelet Volume 10.1 fl (7.4-10.4); Platelet Count 154 K/mm3 (142-424); Red Cell Distribution Width 13.9 % (11.5-17.5); White Blood Count 5.1 K/mm3 (4.8-10.8)
[2024-08-03 08:16] LABS: Basophils # 0.1 K/mm3 (0-0.2); Eosinophils # 0.2 K/mm3 (0.0-0.4); Eosinophils % 4.1 % (0.1-12.0); Lymphocytes # 1.6 K/mm3 (0.7-4.5); Lymphocytes % 31.4 % (10-50); Monocytes # 0.5 K/mm3 (0.1-1.0); Monocytes % 9.2 % (1.7-9.3); Neutrophils # 2.7 K/mm3 (1.8-7.8); Neutrophils % 53.9 % (37.0-80.0)
--- NOTE | 2024-08-03 12:21 | EXP.DC.SUM ---
General Admission date:: 08/02/24 HPI HPI HPI: Mr. Junior is a 74-year-old male with history of hypertension, BPH, kidney and bladder stones, COPD. Initially presented to cardiology today for clearance for surgical removal of kidney and bladder stones. During preop testing yesterday at , found to be severely hypertensive. Sent to cardiology for clearance. On arrival to cardiology clinic, patient found to have systolics above 200. Questionable complaint of intermittent abdominal and chest pain. Sent to the ER for further evaluation. On evaluation, CT obtained showing no new findings. Diverticulitis that led to previous admission has resolved. Kidney stone stable. No blockage. Labs relatively unremarkable with no signs of infection. Blood pressure severely elevated however. Medicine consulted for admission and further management to assist with optimization of blood pressure treatment. On arrival to the floor, patient does state that he gets ankle from doctors. Denies any headache, confusion, syncope, chest pain at this time. No shortness of breath. Lying flat on exam without difficulty. His daughter reports that he likely would not tell us if he was having pain but she can tell that he is not been himself for several months now while dealing with all of these recurrent urinary tract infections and bladder issues. His surgery is tentatively scheduled for 08/22/2024. Hospital Course Hospital Course Hospital Course: Edward Junior 74-year-old male with history of COPD who presents from cardiology clinic with severe hypertension. Evaluated in the ER due to suspected abdominal pain initially. Stone stable with no obstruction. Diverticulitis resolved. Discussed case with ER physician, request admission for aggressive treatment of blood pressure as a systolics are above 200. #Hypertensive urgency - Blood pressure severely elevated with systolics above 200. Cardiology consulted to assist with care. No evidence of endorgan damage. ? Clinically improved with increasing irbesartan to 300 mg daily and starting nifedipine 60 mg. Continue metoprolol succinate 100 mg. ? Blood pressure currently in the 140s over 80s. Will continue titration outpatient with cardiology. ? Follow-up with cardiology in 2 weeks. #Bladder and renal calculi - CT of abdomen obtained in the ER, per my review, no signs of diverticulitis. Stones in the kidneys and bladder are stable. Has 2 cm bladder stone that is nonobstructing. -No indication for antibiotics at this time. - White count normal at 5.1, kidney function normal with creatinine 1.1, BUN 11. Urine not suggestive of UTI. 10-20 red cells but no signs of infection. Hemoglobin stable at 16.5. ? Cardiology evaluated, has received preop risk asssessment with an acceptable risk to proceed with surgery. #COPD, Asthma - Continue home Breztri. #Sleep disorder - Continue trazodone 150 mg nightly #Anxiety - Continue Valium 5 mg twice daily as needed. Exam Data for Last 24 hours Vital signs and Labs for Last 24 Hours: Temp Pulse Resp BP Pulse Ox O2 Del Method 98.2 F 94 H 16 147/81 H 92 L Room Air 08/03/24 11:36 08/03/24 11:36 08/03/24 11:36 08/03/24 11:36 08/03/24 11:36 08/03/24 11:36 Laboratory Results - last 24 hr 08/02/24 12:48: Troponin I 0.01 08/02/24 15:48: Troponin I < 0.01 08/03/24 06:27: WBC 5.1, RBC 5.90, Hgb 16.5, Hct 49.8, MCV 84.4, MCH 28.0, MCHC 33.1, RDW 13.9, Plt Count 154, MPV 10.1, Neut % (Auto) 53.9, Lymph % (Auto) 31.4, [place] % (Auto) 9.2, Eos % (Auto) 4.1, Baso % (Auto) 1.0, Neut # (Auto) 2.7, Lymph # (Auto) 1.6, [place] # (Auto) 0.5, Eos # (Auto) 0.2, Baso # (Auto) 0.1, Sodium 134 L, Potassium 3.9, Chloride 104, Carbon Dioxide 29, Anion Gap 4.9 L, BUN 11, Creatinine 1.10, Estimated Creat Clear 78, Estimated GFR 65, Est GFR ( Amer) 79, Glucose 94, Calcium 9.2, Magnesium 2.0, Total Bilirubin 0.9, AST 27, ALT 23, Alkaline Phosphatase 54, Total Protein 6.3, Albumin 4.1, Globulin 2.2, Albumin/Globulin Ratio 1.9 H I & O for Last 24 hours: Intake & Output 07/31/24 08/01/24 08/02/24 08/03/24 23:59 23:59 23:59 23:59 Intake Total 840 / 840 250 / 250 Output Total 0 / 0 0 / 0 Balance 840 / 840 250 / 250 Weight 94.886 kg 96.797 kg Constitutional Constitutional: no acute distress *Routine HEENT Exam Head: Present normocephalic Eye: Present EOMI and PERRL ENT: Present mucous membranes moist *Routine Neck Exam Neck: Present supple; Absent lymphadenopathy *Routine Respiratory Exam Respiratory: Present CTA bilaterally *Routine Cardiovascular Exam Cardiovascular: Present RRR *Routine Abdominal Exam Abdominal: Present soft and normoactive bowel sounds; Absent tenderness *Routine Extremities Exam Extremities: Absent cyanosis, clubbing or edema *Routine Skin Exam Skin: Present warm; Absent rash *Routine Neurological Exam Neurological: Present alert and oriented X3 Results Data Completed and Pending Labs on day of discharge: Labs from last 24 hours 08/03/24 08/02/24 08/02/24 06:27 15:48 12:48 WBC 5.1 RBC 5.90 Hgb 16.5 Hct 49.8 MCV 84.4 MCH 28.0 MCHC 33.1 RDW 13.9 Plt Count 154 MPV 10.1 Neut % (Auto) 53.9 Lymph % (Auto) 31.4 [place] % (Auto) 9.2 Eos % (Auto) 4.1 Baso % (Auto) 1.0 Neut # (Auto) 2.7 Lymph # (Auto) 1.6 [place] # (Auto) 0.5 Eos # (Auto) 0.2 Baso # (Auto) 0.1 Sodium 134 L Potassium 3.9 Chloride 104 Carbon Dioxide 29 Anion Gap 4.9 L BUN 11 Creatinine 1.10 Estimated Creat Clear 78 Estimated GFR 65 Est GFR ( Amer) 79 Glucose 94 Calcium 9.2 Magnesium 2.0 Total Bilirubin 0.9 AST 27 ALT 23 Alkaline Phosphatase 54 Troponin I < 0.01 0.01 Total Protein 6.3 Albumin 4.1 Globulin 2.2 Albumin/Globulin Ratio 1.9 H DS: Diagnosis Discharge Diagnosis (1) Hypertensive urgency, malignant: Status: Resolved Code(s): I16.0 - Hypertensive urgency (2) COPD mixed type: Status: Acute Code(s): J44.9 - Chronic obstructive pulmonary disease, unspecified (3) Bladder stone: Status: Acute Code(s): N21.0 - Calculus in bladder (4) Calculus, ureteral: Status: Acute Code(s): N20.1 - Calculus of ureter (5) BPH (benign prostatic hyperplasia): Status: Acute Code(s): N40.0 - Benign prostatic hyperplasia without lower urinary tract symptoms Meds Home Medications and Allergies Home Medications ?Medication ?Instructions ?Recorded ?Confirmed ?Type metoprolol succinate 100 mg 100 mg PO DAILY 01/26/23 08/02/24 History tablet,extended release 24 hr azelastine 137 mcg (0.1 %) nasal 2 spray intranasal HS 90 days #30 06/06/24 08/02/24 Rx spray mL fluticasone propionate 50 2 spray intranasal DAILY 90 days 06/06/24 08/02/24 Rx mcg/actuation nasal #16 grams spray,suspension (Flonase Allergy Relief) albuterol sulfate 90 mcg/actuation 2 inh inhalation Q6HP PRN 08/02/24 08/02/24 History aerosol inhaler shortness of breath or wheezing budesonide 160 mcg-glycopyr 9 1 inh inhalation DAILY 08/02/24 08/02/24 History mcg-formot 4.8 mcg/actuation HFA inhaler (Breztri Aerosphere) budesonide 160 mcg-glycopyr 9 2 inh inhalation BID 08/02/24 08/02/24 History mcg-formot 4.8 mcg/actuation HFA inhaler (Breztri Aerosphere) trazodone 150 mg tablet 150 mg PO HS 08/02/24 08/02/24 History hydralazine 25 mg tablet 25 mg PO TID PRN SBP > 180 #5 tabs 08/03/24 Rx irbesartan 300 mg tablet 300 mg PO DAILY 30 days #30 tabs 08/03/24 Rx nifedipine 30 mg tablet,extended 60 mg (2 x 30 mg) PO DAILY 30 days 08/03/24 Rx release 24 hr #60 tabs New Prescriptions to Start Prescriptions: hydralazine [place],Haim irbesartan [place],Haim nifedipine Roman,Haim Allergies Allergy/AdvReac Type Severity Reaction Status Date / Time codeine Allergy Intermediate Other Verified 08/02/24 09:48 Iodinated Contrast Media Allergy Unknown Unknown Verified 08/02/24 08:30 allergy reaction Discharge Plan Disposition Patient Disposition: Home, Self-Care Condition: Fair Follow up Plan Follow up with: Yaya Long PA [Physician Facility Rehab Director] - 08/21/24 9:00 am Kelly Fuentes APRN [Primary Care Provider] - 08/17/24 10:00 am Prescriptions/Medication Reconciliation: New nifedipine 30 mg Tablet Extended Release 24hr 60 mg PO DAILY 30 Days Qty: 60 0RF irbesartan 300 mg Tablet 300 mg PO DAILY 30 Days Qty: 30 0RF hydralazine 25 mg tablet 25 mg PO TID PRN (Reason: SBP > 180) Qty: 5 0RF Continued metoprolol succinate 100 mg tablet extended release 24 hr 100 mg PO DAILY trazodone 150 mg tablet 150 mg PO HS fluticasone propionate [Flonase Allergy Relief] 50 mcg/actuation spray,suspension 2 spray intranasal DAILY 90 Days Qty: 16 2RF Rx Instructions: administer into each nostril azelastine 137 mcg (0.1 %) spray,non-aerosol 2 spray intranasal HS 90 Days Qty: 30 2RF Rx Instructions: administer into each nostril albuterol sulfate 90 mcg/actuation HFA aerosol inhaler 2 inh inhalation Q6HP PRN (Reason: shortness of breath or wheezing) Breztri Aerosphere 160-9-4.8 mcg/actuation Hfa Aerosol Inhaler 2 inh INHALATION BID Breztri Aerosphere 160-9-4.8 mcg/actuation HFA aerosol inhaler 1 inh inhalation DAILY Discontinued irbesartan 75 mg tablet 150 mg PO DAILY Problem Reconciliation Problems Reviewed?: Yes Patient Discharge Instructions Patient Instructions: Kidney Stones -- Adult, DI for High Blood Pressure Print Language: Brazilian Providers Primary Care Provider: Kelly Fuentes Admit Provider: Jl Castellano Attending Provider: Jl Castellano
--- NOTE | 2024-08-03 14:09 | EXP.CARD.CON ---
History of Present Illness History of Present Illness Consult date: 08/03/24 Requesting physician: Jl Castellano Consult reason: chest pain and hypertension Chief complaint: CP Htn History of present illness: 74-year-old white male without known cardiovascular disease who was evaluated in our outpatient clinic yesterday as a new patient needing surgical clearance for bilateral kidney stone and bladder stone surgery. On arrival to the office his blood pressure was 220 systolic and he had complaints of mild chest discomfort. Patient was referred to the emergency room for further workup and management. On arrival to the ER his blood pressure was 230 systolic. He was given 4 mg IV morphine to help with his abdominal pain and his blood pressure dropped 60 points. He was admitted overnight and started on Procardia XL 60 in addition to his home medications and this morning his blood pressure is 140?150. And serial troponins were normal, EKG shows sinus rhythm without ischemia. 2D echocardiogram shows normal BiV function without wall motion abnormalities. Patient's chest pain has resolved with BP control and he feels ready for discharge home. [facility] Disclaimer: The information contained in this section may have been updated after the patient was seen, as this information can be updated by other users. Medical History Anxiety Weakness Abrasion of left shoulder Facial laceration COPD mixed type Allergic rhinitis Stopped smoking between 5 and 10 years ago Family history of asthma Dyspnea on exertion Asthma Surgical History History of hernia surgery History of tonsillectomy Family History Other No significant family history Social History Smoking Status: Former smoker how long ago did patient quit smokin alcohol intake: never current occupational status: retired Travel in the last 8 weeks: None Review of Systems Constitutional Constitutional: Denies fatigue and Denies weakness Eyes Eyes: Denies loss of vision ENT Ears, Nose, Mouth, and Throat: Denies hearing loss and Denies vertigo *Cardiovascular Cardiovascular: Denies chest pain, Denies dyspnea and Denies syncope *Respiratory Respiratory: Denies cough and Denies dyspnea *Gastrointestinal Gastrointestinal: Denies change in stool character, Denies nausea and Denies vomiting *Genitourinary Genitourinary: Denies difficulty urinating *Musculoskeletal Musculoskeletal: Denies muscle weakness Integumentary/Breasts Skin/Breast: Denies changing lesions *Neurologic Neurologic: Denies loss of vision, Denies syncope, Denies vertigo and Denies weakness Endocrine Endocrine: Denies fatigue Exam Data for Last 24 hours Vital signs and Labs for Last 24 Hours: Temp Pulse Resp BP Pulse Ox O2 Del Method 98.2 F 94 H 16 147/81 H 92 L Room Air 08/03/24 11:36 08/03/24 11:36 08/03/24 11:36 08/03/24 11:36 08/03/24 11:36 08/03/24 12:27 Laboratory Results - last 24 hr 08/02/24 15:48: Troponin I < 0.01 08/03/24 06:27: WBC 5.1, RBC 5.90, Hgb 16.5, Hct 49.8, MCV 84.4, MCH 28.0, MCHC 33.1, RDW 13.9, Plt Count 154, MPV 10.1, Neut % (Auto) 53.9, Lymph % (Auto) 31.4, [place] % (Auto) 9.2, Eos % (Auto) 4.1, Baso % (Auto) 1.0, Neut # (Auto) 2.7, Lymph # (Auto) 1.6, [place] # (Auto) 0.5, Eos # (Auto) 0.2, Baso # (Auto) 0.1, Sodium 134 L, Potassium 3.9, Chloride 104, Carbon Dioxide 29, Anion Gap 4.9 L, BUN 11, Creatinine 1.10, Estimated Creat Clear 78, Estimated GFR 65, Est GFR ( Amer) 79, Glucose 94, Calcium 9.2, Magnesium 2.0, Total Bilirubin 0.9, AST 27, ALT 23, Alkaline Phosphatase 54, Total Protein 6.3, Albumin 4.1, Globulin 2.2, Albumin/Globulin Ratio 1.9 H I & O for Last 24 hours: Intake & Output 07/31/24 08/01/24 08/02/24 08/03/24 23:59 23:59 23:59 23:59 Intake Total 840 / 840 790 / 790 Output Total 0 / 0 0 / 0 Balance 840 / 840 790 / 790 Weight 209 lb 3 oz 213 lb 6.4 oz Constitutional Constitutional: no acute distress and cooperative *Routine HEENT Exam Eye: Present PERRL *Routine Respiratory Exam Respiratory: Present CTA bilaterally; Absent accessory muscle use, wheezes or crackles *Routine Cardiovascular Exam Cardiovascular: Present RRR, Normal S1 and Normal S2; Absent murmur, gallop or rubs *Routine Abdominal Exam Abdominal: Present soft; Absent tenderness *Routine Extremities Exam Extremities: Present pulses intact; Absent cyanosis or edema *Routine Skin Exam Skin: Present intact; Absent erythema or wounds *Routine Neurological Exam Neurological: Present alert and oriented X3 Routine Psychiatric Exam Psychiatric: Present cooperative Meds Home Medications and Allergies Home Medications ?Medication ?Instructions ?Recorded ?Confirmed ?Type metoprolol succinate 100 mg 100 mg PO DAILY 01/26/23 08/02/24 History tablet,extended release 24 hr azelastine 137 mcg (0.1 %) nasal 2 spray intranasal HS 90 days #30 06/06/24 08/02/24 Rx spray mL fluticasone propionate 50 2 spray intranasal DAILY 90 days 06/06/24 08/02/24 Rx mcg/actuation nasal #16 grams spray,suspension (Flonase Allergy Relief) albuterol sulfate 90 mcg/actuation 2 inh inhalation Q6HP PRN 08/02/24 08/02/24 History aerosol inhaler shortness of breath or wheezing budesonide 160 mcg-glycopyr 9 1 inh inhalation DAILY 08/02/24 08/02/24 History mcg-formot 4.8 mcg/actuation HFA inhaler (Breztri Aerosphere) budesonide 160 mcg-glycopyr 9 2 inh inhalation BID 08/02/24 08/02/24 History mcg-formot 4.8 mcg/actuation HFA inhaler (Breztri Aerosphere) trazodone 150 mg tablet 150 mg PO HS 08/02/24 08/02/24 History hydralazine 25 mg tablet 25 mg PO TID PRN SBP > 180 #5 tabs 08/03/24 Rx irbesartan 300 mg tablet 300 mg PO DAILY 30 days #30 tabs 08/03/24 Rx nifedipine 30 mg tablet,extended 60 mg (2 x 30 mg) PO DAILY 30 days 08/03/24 Rx release 24 hr #60 tabs New Prescriptions to Start Prescriptions: hydralazine [place],Haim irbesartan [place],Haim nifedipine [place],Haim Allergies Allergy/AdvReac Type Severity Reaction Status Date / Time codeine Allergy Intermediate Other Verified 08/02/24 09:48 Iodinated Contrast Media Allergy Unknown Unknown Verified 08/02/24 08:30 allergy reaction Assessment and Plan *Assessment and plan (1) Hypertensive urgency, malignant: Status: Acute Category: Medical Code(s): I16.0 - Hypertensive urgency (2) Bladder calculus: Status: Acute Category: Medical Code(s): N21.0 - Calculus in bladder (3) Calculus, ureteral: Status: Acute Category: Medical Code(s): N20.1 - Calculus of ureter (4) Encounter for pre-operative cardiovascular clearance: Status: Acute Category: Medical Code(s): Z01.810 - Encounter for preprocedural cardiovascular examination Plan Htn Urgency - BP 230s with associated CP - nml Trop x3, ECHO shows nml LV function, no WMA - Cont home dose Irbesartan, Metoprolol - Add Procardia XL 60mg daily at discharge as well as Hydralazine 25mg QID PRN BP >180 Pre-Op Clearance - EKG and ECHO unremarkable and pt can perform >4METS activity at home without CP or SOA - Acceptable risk to proceed with renal and bladder surgery Liver Mass - appears to be cysts, noted incidentally on ECHO but not mentioned on recent CTA abdomen - advised pt and his daugther about these findings and they need to f/u with PCP about this CV stable for DC Home with addition of Procardia and Hydralzine as outlined above. He needs office visit with us in 2 weeks. Keep BID BP log until then.
--- NOTE | 2024-08-04 09:58 | SW/DCPLANNER ---
Spoke with patients on the phone. Patient's stated he rested very good last night. Patient's stated that they are aware of his upcoming appointments and picked [facility] their medicine at [facility]. Patient's stated that they were very pleased with the staff here at [facility] and was treated very good. Patient's stated that they have no concerns or questions at this time. Bipin Champagne
== END 2024-08-03 14:15 | disposition home or self-care (01) ==
LOC: ER 10:33 → 2ND 10:39
PROVIDERS: Admitting Provider Internal Medicine Adolescent Medicine; Emergency Provider Emergency Medicine; PCP Nurse Practitioner; Visit Provider Internal Medicine Adolescent Medicine
DX: I16.0 Hypertensive urgency (principal); J44.9 Chronic obstructive pulmonary disease, unspecified; N21.0 Calculus in bladder; F41.9 Anxiety disorder, unspecified; N20.1 Calculus of ureter; N40.0 Benign prostatic hyperplasia without lower urinary tract symptoms; Z79.899 Other long term (current) drug therapy; Z87.891 Personal history of nicotine dependence
CPT/HCPCS: 36415; 74176; 80053; 81001; 83605; 83690; 83735; 84484; 85025; 87086; 93005; 93306; 99285; G0378; J0360; J2270; J2405

== ENCOUNTER 2024-08-28 05:56 | Emergency (ER) | payer MEDICARE, OTHER, SELFPAY ==
[2024-08-28] VITALS (9 sets, daily range): BP systolic 138–173; BP diastolic 81–97; PULSE 73–82; RESP 14–21; TEMP 36.5–37.2; O2SAT 92–97; BMI 32.8
--- NOTE | 2024-08-28 06:08 | PC.NURSE ---
Pt's family states that patient had recent surgery for bladder stone and has been increasingly weak and confused. Pt oriented to person, place and situation. Skin pink warm and dry Resp full and easy Accucheck 102 Pt 2 person assist to get into bed. Speech clear and appropriate. Family states intake and output decreased. Pt placed on 2 lpm nasal O2 due to decreased Sao2.
--- NOTE | 2024-08-28 06:09 | CT_ITS ---
FINAL REPORT TECHNIQUE: Noncontrast exam This study was performed with techniques to keep radiation doses as low as reasonably achievable, (ALARA). Individualized dose reduction techniques using automated exposure control or adjustment of mA and/or kV according to the patient''s size were employed. CLINICAL HISTORY: ams, dizziness x3 days COMPARISON: 06/26/2024 FINDINGS: Moderate atrophy and chronic ischemic white matter changes are noted. No cortical edema is present. There is no mass or hemorrhage. Ventricles are normal. Bone windows show no skull fracture or obvious obstructive lesion. IMPRESSION: 1. No acute intracranial abnormality or obvious mass. 2. Atrophy and chronic ischemic white matter changes as above. 3. No change from the prior exam. Reviewed, Interpreted and Dictated by Jose Alejandro Luu MD Transcribed by Sho Miller Authenticated and [facility]
--- NOTE | 2024-08-28 06:11 | ECG_ITS ---
APPROVED REPORT Exam: Resting ECG HR:75 bpm ECG Measurements Heart Rate 75 AXES MS 147 P 65 QRSd 89 QRS 30 QT 364 T 64 QTc 393 Conclusion SINUS RHYTHM NORMAL ECG UNCONFIRMED REPORT Electronically signed by : MARILUZ BACON, 08/28/2024 23:04:33
--- NOTE | 2024-08-28 06:11 | XR_ITS ---
FINAL REPORT CLINICAL HISTORY: ams FINDINGS: There is linear density in the right lung base likely related to atelectasis or scarring. The left lung is clear. There is no evidence of effusion or pneumothorax. Mediastinum is unremarkable. Heart size is normal. IMPRESSION: Right base atelectasis or scarring. Reviewed, Interpreted and Dictated by Jose Alejandro Luu MD Transcribed by Sho Miller Authenticated and [facility]
--- NOTE | 2024-08-28 06:13 | PC.NURSE ---
Pt in Sinus rhythm per continuous heart monitor
--- NOTE | 2024-08-28 06:14 | ED_ITS ---
Discharge Plan Disposition Patient Disposition: Xfer Short-Term Hosp Chief Complaint: Altered Mental Status Prescriptions Prescriptions: No Action metoprolol succinate 100 mg tablet extended release 24 hr 100 mg PO DAILY trazodone 150 mg tablet 150 mg PO HS fluticasone propionate [Flonase Allergy Relief] 50 mcg/actuation spray,suspension 2 spray intranasal DAILY 90 Days Qty: 16 2RF Rx Instructions: administer into each nostril azelastine 137 mcg (0.1 %) spray,non-aerosol 2 spray intranasal HS 90 Days Qty: 30 2RF Rx Instructions: administer into each nostril albuterol sulfate 90 mcg/actuation HFA aerosol inhaler 2 inh inhalation Q6HP PRN (Reason: shortness of breath or wheezing) Breztri Aerosphere 160-9-4.8 mcg/actuation Hfa Aerosol Inhaler 2 inh INHALATION BID Breztri Aerosphere 160-9-4.8 mcg/actuation HFA aerosol inhaler 1 inh inhalation DAILY nifedipine 30 mg Tablet Extended Release 24hr 60 mg PO DAILY 30 Days Qty: 60 0RF irbesartan 300 mg Tablet 300 mg PO DAILY 30 Days Qty: 30 0RF hydralazine 25 mg tablet 25 mg PO TID PRN (Reason: SBP > 180) Qty: 5 0RF tamsulosin 0.4 mg Capsule 0.4 mg PO DAILY Rx Instructions: for 7 days Referrals Follow up/Referrals: Kelly Fuentes APRN [Primary Care Provider] - See instructions Clinical Impressions Clinical Impression: Acute renal failure, AMS (altered mental status), Acute urinary retention, Metabolic encephalopathy, Pyelonephritis Instructions Patient Instructions: DI for Altered Mental Status Print Language Print Language: Malagasy Discharge ED Provider: Rahat Varghese General Adult HPI <Hakeem Collins MD - Last Filed: 08/28/24 07:04> General Chief complaint: Altered Mental Status Stated complaint: AMS Time Seen by Provider: 08/28/24 06:00 Mode of Arrival: Wheelchair Source of Information: Patient Limitations: No Limitations Description of Symptoms (Recalled from ER Triage Doc. by RN): Pt confused for past few days Poor intake for past few days since surgery History of Present Illness HPI narrative: 74-year-old male with history of hypertension, asthma, ureteral and bladder stones with history of lithotripsy and ureteral stent placement on Wednesday of this week at the [facility]. On Wednesday or family noted that he started to get a little bit confused. They thought he could have some postanesthesia delirium. Symptoms continued to worsen and he had decreased p.o. intake. He has been having issues with balance. He is oriented to person and place but not year or day. He denies any specific pain anywhere. Family reports that they do not think he is eating or drinking anything for the last day or 2. He reports decreased urine output. No reported fever at home. Patient still has the ureteral stents and strings in place and family reports that they were supposed to be removed today. Related Data Home Medications ?Medication ?Instructions ?Recorded ?Confirmed metoprolol succinate 100 mg 100 mg PO DAILY 01/26/23 08/28/24 tablet,extended release 24 hr albuterol sulfate 90 mcg/actuation 2 inh inhalation Q6HP PRN 08/02/24 08/28/24 aerosol inhaler shortness of breath or wheezing budesonide 160 mcg-glycopyr 9 1 inh inhalation DAILY 08/02/24 08/28/24 mcg-formot 4.8 mcg/actuation HFA inhaler (Breztri Aerosphere) budesonide 160 mcg-glycopyr 9 2 inh inhalation BID 08/02/24 08/02/24 mcg-formot 4.8 mcg/actuation HFA inhaler (Breztri Aerosphere) trazodone 150 mg tablet 150 mg PO HS 08/02/24 08/28/24 tamsulosin 0.4 mg capsule 0.4 mg PO DAILY 08/28/24 08/28/24 Previous Rx's ?Medication ?Instructions ?Recorded azelastine 137 mcg (0.1 %) nasal 2 spray intranasal HS 90 days #30 06/06/24 spray mL fluticasone propionate 50 2 spray intranasal DAILY 90 days 06/06/24 mcg/actuation nasal #16 grams spray,suspension (Flonase Allergy Relief) hydralazine 25 mg tablet 25 mg PO TID PRN SBP > 180 #5 tabs 08/03/24 irbesartan 300 mg tablet 300 mg PO DAILY 30 days #30 tabs 08/03/24 nifedipine 30 mg tablet,extended 60 mg (2 x 30 mg) PO DAILY 30 days 08/03/24 release 24 hr #60 tabs Allergies Allergy/AdvReac Type Severity Reaction Status Date / Time codeine Allergy Intermediate Other Verified 08/02/24 09:48 Iodinated Contrast Media Allergy Unknown Unknown Verified 08/02/24 08:30 allergy reaction [facility] <Hakeem Collins MD - Last Filed: 08/28/24 07:04> [facility] Disclaimer: The information contained in this section may have been updated after the patient was seen, as this information can be updated by other users. Medical History Anxiety Weakness Abrasion of left shoulder Facial laceration COPD mixed type Allergic rhinitis Stopped smoking between 5 and 10 years ago Family history of asthma Dyspnea on exertion Asthma Surgical History History of hernia surgery History of tonsillectomy Family History Other No significant family history Social History Smoking Status: Former smoker how long ago did patient quit smokin alcohol intake: never current occupational status: retired Travel in the last 8 weeks: None Have you lived/traveled outside US in past 30 days?: No Contact w/someone who lives/traveled outside US past 30 days?: No Exposure to someone with infectious disease in past 14 days?: No Do you have a fever (greater than 100.4 F or 38 C)?: No Have you tested positive for COVID-19: No Exposed to someone with COVID-19 in past 14 days?: No Do you have a sore throat?: No Do you have a cough?: No Do you have any weakness?: No Do you have any diarrhea?: No Are you experiencing any unusual bleeding?: No Do you have any muscle aches/pain?: No Do you have any abdominal pain?: No Are you experiencing loss of taste or smell?: No Other Medical History Have you received the Flu Vaccine for this season: No Have you received the Pneumonia Vaccine: No <Hakeem Collins MD - Last Filed: 08/28/24 07:04> ROS Obtained: Yes All systems reviewed & no additional complaints except as documented Physical Exam <Hakeem Collins MD - Last Filed: 08/28/24 07:04> General General appearance: alert and in no apparent distress Head Head exam: atraumatic and normocephalic Eye Eye exam: Present normal appearance, PERRL and EOMI ENT ENT exam: Present normal oropharynx and normal external ear exam Neck Neck exam: Present normal inspection and full ROM Chest Chest inspection: Present normal inspection and symmetric chest wall rise; Absent tenderness Respiratory Respiratory exam: Present normal lung sounds bilaterally; Absent respiratory distress Cardiovascular Cardiovascular exam: Present regular rate and normal rhythm Abdominal Exam Abdominal exam: Present soft, distention and tenderness (Suprapubic fullness and tenderness); Absent guarding Extremities Exam Extremities exam: Present normal inspection; Absent edema or joint swelling Back Exam Back exam: Present normal inspection; Absent tenderness Neurological Exam Neurological exam: Present alert; Absent oriented X3 (Oriented x 2. Unstable on his feet, no unilateral weakness or numbness) or normal gait Psychiatric Psychiatric exam: Present normal affect and normal mood Skin Skin exam: Present warm, dry and normal color Lymphatic Lymphatic Findings: no adenopathy Medical Decision Making <Hakeem Collins MD - Last Filed: 08/28/24 07:04> Medical Records Medical records reviewed: Yes I reviewed the patient's medical records. Screening: Per USPSTF and CDC recommendations, given the prevalence of disease in our region, it is our hospital?s policy to screen for HIV and viral Hepatitis for all patients aged 18 and over and those with ongoing risk factors. [place] Inquiry Pt receiving controlled substance: No [place] was queried for this patient: No Vital Signs: 08/28/24 06:05 08/28/24 06:30 08/28/24 07:20 Temperature 98.9 F Temperature Source Oral Pulse Rate 79 80 Pulse Rate [Right Brachial] 82 Respiratory Rate 20 19 14 Blood Pressure 138/90 173/94 H Blood Pressure [Right Arm] 159/97 H Blood Pressure Mean [Right Arm] 117 Blood Pressure Source [Right Arm] Automatic Cuff Blood Pressure Position [Right Arm] Supine 02 Sat by Pulse Oximetry 92 L 95 97 Oxygen Delivery Method Room Air Nasal Cannula 08/28/24 07:30 08/28/24 08:01 08/28/24 08:31 Temperature Temperature Source Pulse Rate 77 75 73 Pulse Rate [Right Brachial] Respiratory Rate 21 16 17 Blood Pressure 167/91 H 151/81 H 159/97 H Blood Pressure [Right Arm] Blood Pressure Mean [Right Arm] Blood Pressure Source [Right Arm] Blood Pressure Position [Right Arm] 02 Sat by Pulse Oximetry 97 97 95 Oxygen Delivery Method Nasal Cannula Nasal Cannula Nasal Cannula Lab Data Lab results reviewed: Yes I reviewed the patient's lab results. Lab Results 08/28/24 06:11: WBC 10.9 H, RBC 5.57, Hgb 15.6, Hct 45.4, MCV 81.5, MCH 28.0, MCHC 34.4, RDW 14.6, Plt Count 216, MPV 9.7, Neut % (Auto) 80.6 H, Lymph % (Auto) 8.1 L, [place] % (Auto) 9.1, Eos % (Auto) 1.3, Baso % (Auto) 0.4, Neut # (Auto) 8.8 H, Lymph # (Auto) 0.9, [place] # (Auto) 1.0, Eos # (Auto) 0.1, Baso # (Auto) 0.0, D-Dimer 3.05 H, Sodium 132 L, Potassium 5.3 H, Chloride 96 L, Carbon Dioxide 17 L, Anion Gap 24.3 H, BUN 66 H, Creatinine 10.10 H, Estimated Creat Clear 8, Estimated GFR 5 L*, Est GFR ( Amer) 6 L*, Glucose 100, Calcium 10.0, Magnesium 2.1, Total Bilirubin 0.9, AST 25, ALT 14, Alkaline Phosphatase 87, Total Creatine Kinase 75, Troponin I < 0.01, NT-Pro-B Natriuret Pep 525 H, Total Protein 7.2, Albumin 4.4, Globulin 2.8, Albumin/Globulin Ratio 1.6, Lipase 55, TSH 0.45 L, Thyroxine (T4) 7.8, Salicylates < 1.0 L, Acetaminophen < 10 L 08/28/24 06:24: VBG pH 7.30 L, VBG pCO2 38.3, VBG pO2 50.7 H, VBG HCO3 18.3 L, V BG Total CO2 19.5 L, VBG O2 Saturation 85.6 H, VBG Base Excess -7.4 L, VBG Lactic Acid 2.8 H 08/28/24 06:25: SARS-CoV-2 (PCR) Not detected, Influenza A Untype (PCR) Not detected, Influenza Type B (PCR) Not detected 08/28/24 06:37: Urine Color Brown, Urine Appearance Sl cloudy, Urine pH 6.5, Ur Specific [place] 1.020, Urine Protein 3+ A, Urine Glucose (UA) Trace, Urine Ketones Trace, Urine Blood 3+ A, Urine Nitrate Positive A, Urine Bilirubin Negative, Urine Urobilinogen 4.0, Ur Leukocyte Esterase 2+ A, Urine RBC Tntc, Urine WBC Occasional, Ur Squamous Epith Cells Occasional, Amorphous Sediment 4+, Urine Bacteria 2+ 08/28/24 06:11 08/28/24 06:11 Orders (Tests/Meds): ED MEDICATIONS Generic Name Dose Route Start Last Admin Trade Name Freq PRN Reason Stop Dose Admin Ceftriaxone Sodium 2 gm/ 100 mls @ 200 mls/hr 08/28/24 06:45 08/28/24 06:52 Sodium Chloride IV 09/07/24 06:44 200 mls/hr Q24H JUANITA Administration Lactated Ringer's 1,000 mls @ 999 mls/hr 08/28/24 08:14 08/28/24 08:47 Lactated Ringer's 1000 Ml Bag IV 08/28/24 09:14 999 mls/hr .Q1H1M ONE Administration Discontinued Medications Generic Name Dose Route Start Last Admin Trade Name Freq PRN Reason Stop Dose Admin Sodium Chloride 1,000 mls @ 999 mls/hr 08/28/24 06:15 08/28/24 06:46 Sod Chlor 0.9% 1000ml Bag IV 08/28/24 07:15 999 mls/hr .Q1H1M JUANITA Administration ORDERS Category Date Time Status CT abdomen pelvis wo con Stat Cat Scan 08/28/24 07:[address] chest wo con Stat Cat Scan 08/28/24 07:[address] head/brain wo con Stat Cat Scan 08/28/24 06:09 Completed CXR --portable [XR chest portable] Stat Exams 08/28/24 06:11 Completed Acetaminophen Stat Lab 08/28/24 06:11 Completed CBC w/Auto Diff [Complete Blood Count Auto Diff] Stat Lab 08/28/24 06:11 Completed CK [Creatine Kinase] Stat Lab 08/28/24 06:11 Completed CMP [Comprehensive Metabolic Panel] Stat Lab 08/28/24 06:11 Completed D-Dimer Stat Lab 08/28/24 06:11 Completed HIV Combo Routine Lab 08/28/24 06:11 Received Hepatitis C Ab Qual. W/ RFX Routine Lab 08/28/24 06:11 Received Lipase Stat Lab 08/28/24 06:11 Completed Magnesium Stat Lab 08/28/24 06:11 Completed NT Pro Brain Natriuretic Pep. Stat Lab 08/28/24 06:11 Completed Rapid PCR Covid and Flu A/B Stat Lab 08/28/24 06:25 Completed Salicylate Stat Lab 08/28/24 06:11 Completed T4 (Thyroxine) Stat Lab 08/28/24 06:11 Completed TSH [Thyroid Stimulating Hormone] Stat Lab 08/28/24 06:11 Completed Troponin I Q3H Lab 08/28/24 06:11 Completed UA [Urinalysis and Microscopic] Stat Lab 08/28/24 06:37 Completed UDS [Drug Screen,Urine] Stat Lab 08/28/24 06:37 Received Blood Culture Stat Micro 08/28/24 06:07 Received Urine Culture Stat Micro 08/28/24 06:37 Received VBG [Venous Blood Gas] Stat RT 08/28/24 06:24 Completed ECG Data Tracing #1: I reviewed this ECG and interpreted as documented below: Sinus rhythm, rate of 75, baseline artifact obscures interpretation, no obvious ST elevations. ECG initial impression date: 08/28/24 ECG initial impression time: 06:11 Medical Decision Narrative: 74-year-old male history of with a trip C and ureteral stent placement earlier this week at [facility] presents for several days of worsening altered mental status, instability, decreased p.o. intake and urine output. History was obtained via interactive discussion with patient, family, chart review. On arrival, patient is afebrile, he medically stable, satting low 90s on room air, alert and oriented x 2, moving all extremities spontaneously. Full physical exam performed and significant for suprapubic fullness and tenderness. Bladder scan 1000. A Alvarenga was placed while ensuring that we maintain control of the ureteral strings. Patient had 1600 out of of dark reddish brown urine immediately. Differential includes but is not limited to sepsis, UTI, urinary retention, electrolyte derangement, renal failure, intracranial trauma, pneumonia. Patient was given 1 L IV fluids, 2 g IV ceftriaxone for symptomatic management and correction of underlying abnormalities. Workup initiated including CT head chest x-ray EKG broad-spectrum lab and cultures and urine studies.. On re-evaluation, patient [remains afebrile, HD stable.] Laboratory workup independently interpreted by me and significant for creatinine 10.1 with creatinine of 1.1. CK normal. Mild hyponatremia, troponin undetectably low. Potassium not yet back.. At this time care was handed off to oncoming physician with plan for transfer. <Rahat Varghese MD - Last Filed: 08/28/24 09:16> Vital Signs: 08/28/24 06:05 08/28/24 06:30 08/28/24 07:20 Temperature 98.9 F Temperature Source Oral Pulse Rate 79 80 Pulse Rate [Right Brachial] 82 Respiratory Rate 20 19 14 Blood Pressure 138/90 173/94 H Blood Pressure [Right Arm] 159/97 H Blood Pressure Mean [Right Arm] 117 Blood Pressure Source [Right Arm] Automatic Cuff Blood Pressure Position [Right Arm] Supine 02 Sat by Pulse Oximetry 92 L 95 97 Oxygen Delivery Method Room Air Nasal Cannula 08/28/24 07:30 08/28/24 08:01 08/28/24 08:31 Temperature Temperature Source Pulse Rate 77 75 73 Pulse Rate [Right Brachial] Respiratory Rate 21 16 17 Blood Pressure 167/91 H 151/81 H 159/97 H Blood Pressure [Right Arm] Blood Pressure Mean [Right Arm] Blood Pressure Source [Right Arm] Blood Pressure Position [Right Arm] 02 Sat by Pulse Oximetry 97 97 95 Oxygen Delivery Method Nasal Cannula Nasal Cannula Nasal Cannula Lab Data Lab Results 08/28/24 06:11: WBC 10.9 H, RBC 5.57, Hgb 15.6, Hct 45.4, MCV 81.5, MCH 28.0, MCHC 34.4, RDW 14.6, Plt Count 216, MPV 9.7, Neut % (Auto) 80.6 H, Lymph % (Auto) 8.1 L, [place] % (Auto) 9.1, Eos % (Auto) 1.3, Baso % (Auto) 0.4, Neut # (Auto) 8.8 H, Lymph # (Auto) 0.9, [place] # (Auto) 1.0, Eos # (Auto) 0.1, Baso # (Auto) 0.0, D-Dimer 3.05 H, Sodium 132 L, Potassium 5.3 H, Chloride 96 L, Carbon Dioxide 17 L, Anion Gap 24.3 H, BUN 66 H, Creatinine 10.10 H, Estimated Creat Clear 8, Estimated GFR 5 L*, Est GFR ( Amer) 6 L*, Glucose 100, Calcium 10.0, Magnesium 2.1, Total Bilirubin 0.9, AST 25, ALT 14, Alkaline Phosphatase 87, Total Creatine Kinase 75, Troponin I < 0.01, NT-Pro-B Natriuret Pep 525 H, Total Protein 7.2, Albumin 4.4, Globulin 2.8, Albumin/Globulin Ratio 1.6, Lipase 55, TSH 0.45 L, Thyroxine (T4) 7.8, Salicylates < 1.0 L, Acetaminophen < 10 L 08/28/24 06:24: VBG pH 7.30 L, VBG pCO2 38.3, VBG pO2 50.7 H, VBG HCO3 18.3 L, V BG Total CO2 19.5 L, VBG O2 Saturation 85.6 H, VBG Base Excess -7.4 L, VBG Lactic Acid 2.8 H 08/28/24 06:25: SARS-CoV-2 (PCR) Not detected, Influenza A Untype (PCR) Not detected, Influenza Type B (PCR) Not detected 08/28/24 06:37: Urine Color Brown, Urine Appearance Sl cloudy, Urine pH 6.5, Ur Specific [place] 1.020, Urine Protein 3+ A, Urine Glucose (UA) Trace, Urine Ketones Trace, Urine Blood 3+ A, Urine Nitrate Positive A, Urine Bilirubin Negative, Urine Urobilinogen 4.0, Ur Leukocyte Esterase 2+ A, Urine RBC Tntc, Urine WBC Occasional, Ur Squamous Epith Cells Occasional, Amorphous Sediment 4+, Urine Bacteria 2+ Orders (Tests/Meds): ED MEDICATIONS Generic Name Dose Route Start Last Admin Trade Name Freq PRN Reason Stop Dose Admin Ceftriaxone Sodium 2 gm/ 100 mls @ 200 mls/hr 08/28/24 06:45 08/28/24 06:52 Sodium Chloride IV 09/07/24 06:44 200 mls/hr Q24H JUANITA Administration Lactated Ringer's 1,000 mls @ 999 mls/hr 08/28/24 08:14 08/28/24 08:47 Lactated Ringer's 1000 Ml Bag IV 08/28/24 09:14 999 mls/hr .Q1H1M ONE Administration Discontinued Medications Generic Name Dose Route Start Last Admin Trade Name Freq PRN Reason Stop Dose Admin Sodium Chloride 1,000 mls @ 999 mls/hr 08/28/24 06:15 08/28/24 06:46 Sod Chlor 0.9% 1000ml Bag IV 08/28/24 07:15 999 mls/hr .Q1H1M JUANITA Administration ORDERS Category Date Time Status CT abdomen pelvis wo con Stat Cat Scan 08/28/24 07:[address] chest wo con Stat Cat Scan 08/28/24 07:[address] head/brain wo con Stat Cat Scan 08/28/24 06:09 Completed CXR --portable [XR chest portable] Stat Exams 08/28/24 06:11 Completed Acetaminophen Stat Lab 08/28/24 06:11 Completed CBC w/Auto Diff [Complete Blood Count Auto Diff] Stat Lab 08/28/24 06:11 Completed CK [Creatine Kinase] Stat Lab 08/28/24 06:11 Completed CMP [Comprehensive Metabolic Panel] Stat Lab 08/28/24 06:11 Completed D-Dimer Stat Lab 08/28/24 06:11 Completed HIV Combo Routine Lab 08/28/24 06:11 Received Hepatitis C Ab Qual. W/ RFX Routine Lab 08/28/24 06:11 Received Lipase Stat Lab 08/28/24 06:11 Completed Magnesium Stat Lab 08/28/24 06:11 Completed NT Pro Brain Natriuretic Pep. Stat Lab 08/28/24 06:11 Completed Rapid PCR Covid and Flu A/B Stat Lab 08/28/24 06:25 Completed Salicylate Stat Lab 08/28/24 06:11 Completed T4 (Thyroxine) Stat Lab 08/28/24 06:11 Completed TSH [Thyroid Stimulating Hormone] Stat Lab 08/28/24 06:11 Completed Troponin I Q3H Lab 08/28/24 06:11 Completed UA [Urinalysis and Microscopic] Stat Lab 08/28/24 06:37 Completed UDS [Drug Screen,Urine] Stat Lab 08/28/24 06:37 Received Blood Culture Stat Micro 08/28/24 06:07 Received Urine Culture Stat Micro 08/28/24 06:37 Received VBG [Venous Blood Gas] Stat RT 08/28/24 06:24 Completed Medical Decision Narrative: 74-year-old male history of with a trip C and ureteral stent placement earlier this week at [facility] presents for several days of worsening altered mental status, instability, decreased p.o. intake and urine output. History was obtained via interactive discussion with patient, family, chart review. On arrival, patient is afebrile, he medically stable, satting low 90s on room air, alert and oriented x 2, moving all extremities spontaneously. Full physical exam performed and significant for suprapubic fullness and tenderness. Bladder scan 1000. A Alvarenga was placed while ensuring that we maintain control of the ureteral strings. Patient had 1600 out of of dark reddish brown urine immediately. Differential includes but is not limited to sepsis, UTI, urinary retention, electrolyte derangement, renal failure, intracranial trauma, pneumonia. Patient was given 1 L IV fluids, 2 g IV ceftriaxone for symptomatic management and correction of underlying abnormalities. Workup initiated including CT head chest x-ray EKG broad-spectrum lab and cultures and urine studies.. On re-evaluation, patient [remains afebrile, HD stable.] Laboratory workup independently interpreted by me and significant for creatinine 10.1 with creatinine of 1.1. CK normal. Mild hyponatremia, troponin undetectably low. Potassium not yet back.. At this time care was handed off to oncoming physician with plan for transfer. Halima: I assumed primary responsibility for this patient after signout from previous physician. On my evaluation, patient still appears worn out. After talking to family, patient was barrientos up every day before everyone else back in May, since May has had pretty significant decline with all of these kidney stones and episodes of renal failure. This most recent episode has been going on a few days since he was discharged from [facility] and stents are in place. Family states they are happy with the care he received at , but feel that they do not remember the guidance he received when leaving and did not really know what to look for in terms of decompensation. Reassurance offered. Right after my arrival around 7 AM today, 08/28, Alvarenga catheter was placed and nearly 1600 mL out. This was emptied, patient now has another 800 of dark brown/red urine in the bag. Answering questions appropriately other than orientation to time. Lungs are clear, belly is soft. He does not have any distention or tenderness on my exam after Alvarenga placement. On independent interpretation of workup, mild leukocytosis of 11,000. VBG with metabolic acidosis pH 7.3/CO2 normal at 38/bicarb low at 18.3/lactate 2.8. Chemistry concerning for mild hyponatremia 132, hyperkalemia 5.3 anion gap of 24 and BUN 66/creatinine 10.10. Intrarenal versus postobstructive uremia. Liver function normal, troponin negative, BNP mildly elevated at 525. Patient's urinalysis grossly positive for urinary tract infection with blood, protein, nitrates, leukocyte esterase and white cells. 2 g of Rocephin given for this. CT head ordered prior to my arrival, on independent interpretation, there is no intracranial hemorrhage or abnormality acutely. On patient's chest x-ray, has linear opacity in right lower lobe consistent with early pneumonia versus atelectasis. CT scan of the chest, abdomen and pelvis ordered. On independent interpretation, appears to be more atelectasis in right lower lobe, however patient does have left-sided ureteral stent in place, 8 mm bladder stone, and what appears to be a new right sided hydronephrosis with perinephric fat stranding consistent with pyelonephritis in the setting of grossly dirty UA with new 2 to 3 mm ureteral stone. [facility] contacted and case was discussed, graciously excepted transfer for patient for pyelonephritis, obstructive uropathy, metabolic encephalopathy, and acute renal failure. Because patient high risk for clinical decompensation if discharged, deemed appropriate for transfer and inpatient admission. Results were relayed to patient who voiced understanding and patient was agreeable to transfer, inpatient admission, and management. Patient was graciously accepted and transferred to [facility] for further definitive management, under Dr. Spears. Procedures <Hakeem Collins MD - Last Filed: 08/28/24 07:04> Risk/Benefits of Procedure(s) Were Explained: Yes Critical Care <Hakeem Collins MD - Last Filed: 08/28/24 07:04> Critical Care Time Critical Care Time: Yes Attestation: On 08/28/24, the high probability of a clinically significant, sudden or life threatening deterioration of the following system(s) required my full and direct attention, intervention and personal management. The time I documented below is in addition to time spent performing reported procedures but includes the following listed in this critical care notation. Total Time Total Critical Care Time: 40 <Rahat Varghese MD - Last Filed: 08/28/24 09:16> Critical Care Time Critical Care Time: Yes (renal, urinary, metabolic) Total Time Total Critical Care Time: 60
[2024-08-28 06:20] LABS: Basophils % 0.4 % (0.1-2.0); Eosinophils # 0.1 K/mm3 (0.0-0.4); Eosinophils % 1.3 % (0.1-12.0); Hematocrit 45.4 % (42.0-52.0); Hemoglobin 15.6 g/dL (14.1-18.0); Lymphocytes # 0.9 K/mm3 (0.7-4.5); Lymphocytes % 8.1 % (10-50); Mean Corpuscular HGB Conc 34.4 g/dL (31.8-35.4); Mean Corpuscular Volume 81.5 fl (80-94); Mean Platelet Volume 9.7 fl (7.4-10.4); Monocytes % 9.1 % (1.7-9.3); Neutrophils # 8.8 K/mm3 (1.8-7.8); Neutrophils % 80.6 % (37.0-80.0); Platelet Count 216 K/mm3 (142-424); Red Blood Count 5.57 M/mm3 (4.60-6.20); Red Cell Distribution Width 14.6 % (11.5-17.5); White Blood Count 10.9 K/mm3 (4.8-10.8)
--- NOTE | 2024-08-28 06:25 | PC.NURSE ---
Breanne RN bladder scan this patient and showed amount greater than 1180mL
[2024-08-28 06:37] LABS: Alanine Aminotransferase 14 U/L (12-78); Albumin Level 4.4 g/dl (3.5-5.0); Albumin/Globulin Ratio 1.6 (1.1-1.8); Alkaline Phosphatase 87 U/L (38-126); Aspartate Amino Transferase 25 U/L (17-59); Bilirubin,Total 0.9 mg/dl (0.2-1.3); Blood Urea Nitrogen 66 mg/dl (9-20); Carbon Dioxide 17 mmol/L (22.0-30.0); Chloride 96 mmol/L (98-107); Creatinine Clearance Estimated 8 mL/min (50-200); Estimated Glomerular Filt Rate 5 ml/min (>60); GFR (African American) 6 ML/MIN (>60); Globulin 2.8 g/dL (1.3-3.2); Glucose 100 mg/dl (74-100); Lipase 55 U/L (23-300); Magnesium 2.1 mg/dl (1.6-2.3); Sodium 132 mmol/L (136-145); Total Protein,Serum 7.2 g/dl (6.3-8.2)
[2024-08-28 06:38] LABS: Lactate Venous 2.8 mmol/L (0.4-2.0); VBG Base Excess -7.4 mmol/L (-2.4-2.3); VBG HCO3 18.3 mmol/L (23-30); VBG Oxygen Saturation 85.6 % (50-70); VBG PCO2 38.3 mmol/L (35-51); VBG PO2 50.7 mmol/L (28-40); VBG Total CO2 19.5 mmol/L (23-27)
[2024-08-28 06:39] LABS: Acetaminophen < 10 ug/ml (10-30); Creatine Kinase 75 U/L (55-170)
[2024-08-28 06:40] LABS: Coronavirus 19, PCR Not Detected (NotDetected); Influenza A, PCR Not Detected (NotDetected); Influenza B, PCR Not Detected (NotDetected)
[2024-08-28 06:40] LABS: Salicylate < 1.0 mg/dL (2.0-20.0)
[2024-08-28 06:42] LABS: D-Dimer 3.05 ug/mL (0.0-0.5)
[2024-08-28 06:42] LABS: Microscopic, Urine URINE MICROSCOPIC (MICROSCOPIC)
--- NOTE | 2024-08-28 06:44 | PC.NURSE ---
Dr. Collins notified of creatinine of 10.10
[2024-08-28 06:45] LABS: Appearance,Urine SL CLOUDY (Clear); Blood, Urine 3+ (Negative); Color,Urine BROWN (Yellow); Glucose,Urine (UA) TRACE (Negative); Ketones,Urine TRACE (Negative); Leukocyte Esterase,Urine 2+ (Negative); Nitrate,Urine POSITIVE (Negative); PH,Urine 6.5 (5.0-8.5); Protein,Urine 3+ (Negative)
[2024-08-28] MEDS: 0.9 % SODIUM CHLORIDE 1000ML 1,000 ML 999 ML IV (06:46)
[2024-08-28] MEDS: CEFTRIAXONE SODIUM 2 GM in 0.9 % SODIUM CHLORIDE 100 ML IV (06:52)
[2024-08-28 06:53] LABS: Troponin I < 0.01 ng/ml (0.00-0.034)
[2024-08-28 06:56] LABS: T4 (Thyroxine) 7.8 ug/dl (5.53-11.0)
[2024-08-28 07:10] LABS: Thyroid Stimulating Hormone 0.45 uIU/mL (0.465-4.68)
--- NOTE | 2024-08-28 07:24 | CT_ITS ---
FINAL REPORT CLINICAL HISTORY: pneumonia vs pulmonary edema vs atalec. AMS, weak COMPARISON: None FINDINGS: CT CHEST without contrast COMPARISON: None . TECHNIQUE: Axial CT without contrast This study was performed with techniques to keep radiation doses as low as reasonably achievable, (ALARA). Individualized dose reduction techniques using automated exposure control or adjustment of mA and/or kV according to the patient's size were employed. FINDINGS: Bibasilar atelectasis is present, greater on the right than on the left, without evidence of pneumonia or pulmonary edema. A tiny right pleural effusion is present, without evidence of a pericardial or left pleural effusion. No adenopathy or mass lesion is present . IMPRESSION: 1. Bibasilar atelectasis and tiny right pleural effusion, without evidence of pneumonia or pulmonary edema. This study was performed using automated techniques to achieve radiation exposure as low as reasonably achievable Reviewed, Interpreted and Dictated by Jose Alejandro Luu MD Transcribed by Susanna Johnson Authenticated and [facility]
--- NOTE | 2024-08-28 07:24 | CT_ITS ---
FINAL REPORT TECHNIQUE: Noncontrast exam This study was performed with techniques to keep radiation doses as low as reasonably achievable, (ALARA). Individualized dose reduction techniques using automated exposure control or adjustment of mA and/or kV according to the patient''s size were employed. CLINICAL HISTORY: recent stones, renal failure, stenting. AMS, weak, COMPARISON: 08/02/2024 FINDINGS: Abdomen: There is extensive right perinephric stranding. Moderate right hydronephrosis is secondary to a 2 mm distal right ureteral stone located at the pelvic brim well-seen on image 89 of series 10. There is a left internal ureteral stent with mild left hydronephrosis. Nonobstructing small left renal stones are noted. Multiple hepatic cysts. The remaining solid organs are normal. The gallbladder is mildly distended. Bowel is negative. Pelvis: The appendix is not seen. The urinary bladder is decompressed with a Alvarenga catheter. However, there are small stones within the bladder, presumably recently passed upper urinary tract stones. The prostate is unremarkable. IMPRESSION: High-grade acute right urinary tract obstruction secondary to a 2 mm distal right ureteral stone. Mild left hydronephrosis with internal ureteral stent in place. Reviewed, Interpreted and Dictated by Jose Alejandro Luu MD Transcribed by Cristina Solano Authenticated and [facility]
[2024-08-28 07:29] LABS: NT Pro Brain Natriuretic Pep. 525 pg/mL (0-450)
--- NOTE | 2024-08-28 07:35 | PC.NURSE ---
Dr. Varghese at bedside updating on results and POC.
[2024-08-28 07:41] LABS: Anion Gap 24.3 mEq/L (5-15); Potassium 5.3 mmoL/L (3.5-5.1)
[2024-08-28 07:44] LABS: Bilirubin,Urine Negative (Negative)
--- NOTE | 2024-08-28 07:47 | PC.NURSE ---
pt to ct scan
[2024-08-28 08:13] LABS: Amorphous Sediment,Urine 4+ /lpf; Bacteria,Urine 2+ /lpf; RBC,Urine TNTC #/hpf (0-3); Squamous Epithelial Cell,Urine Occasional #/hpf (0-5); WBC,Urine Occasional #/hpf (0-3)
[2024-08-28] MEDS: LACTATED RINGERS 1000ML 1,000 ML 999 ML IV (08:47)
--- NOTE | 2024-08-28 08:55 | PC.NURSE ---
Dr Varghese talking to [facility] about patient transfer due to new renal obstruction and renal failure.
--- NOTE | 2024-08-28 08:58 | PC.NURSE ---
called [facility] per for transfer due to pt had urinary stints placed last wednesday08/25/24 and has a new obstruction and new renal failure
--- NOTE | 2024-08-28 09:24 | PC.NURSE ---
DR ALFORD AT BEDSIDE TO UPDATE PT AND FAMILY
--- NOTE | 2024-08-28 09:45 | PC.NURSE ---
REPORT CALLED TO PEDRO REYES AT ED
--- NOTE | 2024-08-28 09:48 | PC.NURSE ---
[facility] NOTIFIED OF TRANSFER
[2024-08-28 10:34] LABS: Amphetamine/Metha Screen,Urine Negative ng/ml (<1000)
[2024-08-28 10:35] LABS: Barbiturates Screen,Urine Negative ng/ml (<200)
[2024-08-28 10:36] LABS: Benzodiazepines Screen,Urine Positive ng/ml (<200); Cannabinoid Screen,Urine Negative ng/ml (<50)
[2024-08-28 10:37] LABS: Cocaine Screen,Urine Negative ng/ml (<300)
[2024-08-28 10:38] LABS: Reflex Lactic Add Lactic Reflex
[2024-08-28 10:38] LABS: Methadone Screen,Urine Negative ng/ml (<300); Opiate Screen,Urine Negative ng/ml (<300)
[2024-08-28 10:39] LABS: Phencyclidine Screen,Urine Negative ng/ml (<25)
[2024-08-28 11:24] LABS: HIV Combo NEGATIVE (Negative)
[2024-08-28 11:31] LABS: Hepatitis C Ab Qual. W/ RFX NEGATIVE (Negative)
== END 2024-08-28 10:12 | disposition short-term general hospital (02) ==
PROVIDERS: Emergency Medicine; Emergency Provider Emergency Medicine; PCP Nurse Practitioner
DX: G93.41 Metabolic encephalopathy (principal); N12 Tubulo-interstitial nephritis, not specified as acute or chronic; N17.9 Acute kidney failure, unspecified; R33.8 Other retention of urine; R41.82 Altered mental status, unspecified; R26.81 Unsteadiness on feet; R63.8 Other symptoms and signs concerning food and fluid intake
CPT/HCPCS: 70450; 71045; 71250; 74176; 80053; 80307; 80329; 81001; 82550; 82803; 83690; 83735; 83880; 84436; 84443; 84484; 85025; 85378; 86803; 87040; 87086; 87389; 87636; 93005; 96361; 96365; 99291; G0480; J0696; J7030; J7120

== ENCOUNTER 2024-11-07 13:37 | Outpatient (CLI) | payer MEDICARE, OTHER, SELFPAY ==
--- NOTE | 2024-11-07 13:41 | CT_ITS ---
FINAL REPORT TECHNIQUE: Thin section axial images are obtained through the abdomen and pelvis after intravenous contrast. Reconstruction images were obtained from the axial data. Exam was performed using dose reduction techniques. This study was performed with techniques to keep radiation doses as low as reasonably achievable (ALARA). Individualized dose reduction techniques using automated exposure control or adjustment of mA and/or kV according to the patient's size were employed. CLINICAL HISTORY: COLITIS, LEFT LOWER ABD PAIN X 1 DAY COMPARISON: 08/28/2024 FINDINGS: LUNG BASES: Lung bases are clear. Heart size is normal. LIVER: Multiple hepatic cysts are present in the liver, stable since the prior CT. GALLBLADDER/BILIARY SYSTEM: Gallbladder is present. No gallstones. No biliary dilatation. SPLEEN: Unremarkable. PANCREAS: Changes of chronic pancreatitis are again noted. No acute pancreatitis is present. ADRENALS: Unremarkable. KIDNEYS/URETERS/BLADDER: The left ureteral stent noted on the prior CT has been removed since the previous exam. The right sided hydronephrosis is no longer seen. A bladder stone is present. GI TRACT: No small bowel obstruction or dilatation. Normal appendix. There is focal wall thickening of the distal descending colon with multiple diverticula present the appearance consistent with acute diverticulitis. There is a contained perforation with a small air-fluid level collection which measures 4 cm in size. No free air is identified. PELVIC ORGANS: Unremarkable for age. LYMPH NODES/RETROPERITONEUM/MESENTERY: No lymphadenopathy. No abdominal aortic aneurysm. ABDOMINAL WALL: The abdominal wall is intact. FREE FLUID: No ascites. BONES: No acute osseous abnormality. IMPRESSION: Focal wall thickening in the distal descending colon at a site where multiple diverticula are present, consistent with diverticulitis. There is a contained perforation with a small air-fluid level collection as described. This is consistent with a small abscess, and its location is not amenable to CT drainage. There has been interval resolution of the previous right hydronephrosis. Reviewed, Interpreted and Dictated by Judith Bocanegra MD Transcribed by Susanna Johnson Authenticated and [facility]
[2024-11-07 14:13] LABS: Blood Urea Nitrogen 12 mg/dl (9-20); Estimated Glomerular Filt Rate 73 ml/min (>60); GFR (African American) 88 ML/MIN (>60)
[2024-11-07] MEDS: SODIUM CHLORIDE 0.9% 10ML SYR (RAD ONLY) 10 ML IV (14:58)
[2024-11-07] MEDS: IOPAMIDOL-370 (76%);100ML BOTTLE 75 ML IV (14:58)
== END 2024-11-07 23:59 | disposition home or self-care (01) ==
LOC: RAD 13:38
PROVIDERS: PCP Nurse Practitioner; Visit Provider Nurse Practitioner
DX: R10.32 Left lower quadrant pain (principal); K52.9 Noninfective gastroenteritis and colitis, unspecified
CPT/HCPCS: 36415; 74177; 82565; 84520; Q9967

== ENCOUNTER 2024-11-09 13:35 | Outpatient (CLI) | payer MEDICARE, OTHER, SELFPAY ==
[2024-11-09 14:19] VITALS: BMI 27.8
--- NOTE | 2024-11-09 14:21 | XR_ITS ---
PROCEDURE INFORMATION: Exam: XR Chest Exam date and time: 11/09/2024 2:19 PM Age: 74 years old Clinical indication: Device placement; Picc; Additional info: Picc line placement TECHNIQUE: Imaging protocol: Radiologic exam of the chest. Views: 1 view. COMPARISON: CT CHEST WO CON 08/28/2024 7:44 AM FINDINGS: Tubes, catheters and devices: There is a left PICC line with its tip terminating in the cavoatrial junction. Lungs: No evidence of pneumonia or interstitial edema. Pleural spaces: Unremarkable. No pleural effusion. No pneumothorax. Heart/Mediastinum: Unremarkable. No cardiomegaly. Bones/joints: Unremarkable. IMPRESSION: 1. There is a left PICC line with its tip terminating in the cavoatrial junction. 2. No evidence of pneumonia or interstitial edema.
[2024-11-09] MEDS: ERTAPENEM SODIUM 1 GM in 0.9 % SODIUM CHLORIDE 50 ML IV (16:00)
[2024-11-09] MEDS: 0.9 % SODIUM CHLORIDE 50 ML 100 ML IV (16:01)
[2024-11-09 16:35] VITALS: BP 158/84; PULSE 82
[2024-11-09 16:42] VITALS: BP 159/91; PULSE 93; RESP 18; O2SAT 96
[2024-11-09 17:03] LABS: Creatinine Clearance Estimated 81 mL/min (50-200); Estimated Glomerular Filt Rate 73 ml/min (>60); GFR (African American) 88 ML/MIN (>60)
== END 2024-11-09 16:42 | disposition home or self-care (01) ==
LOC: INF 13:37
PROVIDERS: PCP Nurse Practitioner; Visit Provider Nurse Practitioner
DX: N12 Tubulo-interstitial nephritis, not specified as acute or chronic (principal); R53.1 Weakness
CPT/HCPCS: 36410; 36569; 71045; 82565; 96365; C1751; J1335

== ENCOUNTER 2024-11-10 13:16 | Outpatient (CLI) | payer MEDICARE, OTHER, SELFPAY ==
[2024-11-10] MEDS: ERTAPENEM SODIUM 1 GM in 0.9 % SODIUM CHLORIDE 50 ML IV (13:25)
[2024-11-10] MEDS: 0.9 % SODIUM CHLORIDE 50 ML 100 ML IV (13:25)
[2024-11-10 13:34] VITALS: BP 129/94; PULSE 75; RESP 18; TEMP 36.3; O2SAT 95
[2024-11-10 14:13] VITALS: BP 145/91; PULSE 68; RESP 18; O2SAT 95
== END 2024-11-10 14:15 | disposition home or self-care (01) ==
LOC: INF 13:18
PROVIDERS: PCP Nurse Practitioner; Visit Provider Nurse Practitioner
DX: R41.82 Altered mental status, unspecified (principal); N12 Tubulo-interstitial nephritis, not specified as acute or chronic; G93.41 Metabolic encephalopathy
CPT/HCPCS: J1335

== ENCOUNTER 2024-11-15 12:51 | Outpatient (CLI) | payer MEDICARE, OTHER, SELFPAY ==
[2024-11-15 13:03] VITALS: BP 131/75; PULSE 68; RESP 18; TEMP 36.7; O2SAT 96
[2024-11-15] MEDS: ERTAPENEM SODIUM 1 GM in 0.9 % SODIUM CHLORIDE 50 ML IV (13:03)
[2024-11-15] MEDS: 0.9 % SODIUM CHLORIDE 50 ML IV (13:03)
[2024-11-15 13:55] VITALS: BP 136/77; PULSE 69; RESP 18; O2SAT 97
== END 2024-11-15 13:55 | disposition home or self-care (01) ==
LOC: INF 12:52
PROVIDERS: PCP Nurse Practitioner; Visit Provider Nurse Practitioner
DX: N39.0 Urinary tract infection, site not specified (principal)
CPT/HCPCS: 96365; J1335

== ENCOUNTER 2024-11-17 10:00 | Outpatient (CLI) | payer MEDICARE, OTHER, SELFPAY ==
[2024-11-17 10:29] LABS: Chloride 104 mmol/L (98-107); Sodium 139 mmol/L (136-145)
[2024-11-17 10:30] VITALS: BP 114/77; PULSE 72; RESP 18; TEMP 36.8; O2SAT 96
[2024-11-17 10:30] LABS: Basophils # 0.1 K/mm3 (0-0.2); Basophils % 1.2 % (0.1-2.0); Eosinophils # 0.3 K/mm3 (0.0-0.4); Eosinophils % 4.2 % (0.1-12.0); Hematocrit 46.5 % (42.0-52.0); Hemoglobin 15.4 g/dL (14.1-18.0); Lymphocytes # 1.8 K/mm3 (0.7-4.5); Lymphocytes % 28.5 % (10-50); Mean Corpuscular HGB Conc 33.1 g/dL (31.8-35.4); Mean Corpuscular Hemoglobin 28.3 pg (27.0-31.2); Mean Corpuscular Volume 85.3 fl (80-94); Mean Platelet Volume 9.5 fl (7.4-10.4); Monocytes # 0.7 K/mm3 (0.1-1.0); Neutrophils # 3.5 K/mm3 (1.8-7.8); Neutrophils % 54.6 % (37.0-80.0); Platelet Count 238 K/mm3 (142-424); Potassium 4.1 mmoL/L (3.5-5.1); Red Blood Count 5.45 M/mm3 (4.60-6.20); Red Cell Distribution Width 13.3 % (11.5-17.5); White Blood Count 6.4 K/mm3 (4.8-10.8)
[2024-11-17] MEDS: ERTAPENEM SODIUM 1 GM in 0.9 % SODIUM CHLORIDE 50 ML IV (10:30)
[2024-11-17 10:33] LABS: Anion Gap 9.1 mEq/L (5-15); Blood Urea Nitrogen 15 mg/dl (9-20); Carbon Dioxide 30 mmol/L (22.0-30.0); Estimated Glomerular Filt Rate 59 ml/min (>60); GFR (African American) 71 ML/MIN (>60); Glucose 98 mg/dl (74-100)
[2024-11-17 11:05] VITALS: BP 127/76; PULSE 75; RESP 18; O2SAT 99
[2024-11-17] MEDS: SODIUM CHLORIDE 0.9% 50ML BAG 50 ML IV (11:19)
[2024-11-17] MEDS: SODIUM CHLORIDE 0.9% 10ML FLUSH SYRINGE 10 ML IV (11:20)
== END 2024-11-17 11:10 | disposition home or self-care (01) ==
LOC: INF 10:01
PROVIDERS: PCP Nurse Practitioner; Visit Provider Surgery
DX: K57.92 Diverticulitis of intestine, part unspecified, without perforation or abscess without bleeding (principal)
CPT/HCPCS: 80048; 85025; 96365; J1335

== ENCOUNTER 2024-11-24 08:23 | Outpatient (CLI) | payer MEDICARE, OTHER, SELFPAY ==
--- NOTE | 2024-11-24 08:30 | CT_ITS ---
FINAL REPORT TECHNIQUE: Oral and IV contrast enhanced exam This study was performed with techniques to keep radiation doses as low as reasonably achievable, (ALARA). Individualized dose reduction techniques using automated exposure control or adjustment of mA and/or kV according to the patient's size were employed. CLINICAL HISTORY: diverticulitis ABDOMEN PAIN COMPARISON: 11/07/2024 FINDINGS: CT ABDOMEN PELVIS WITH CONTRAST: Abdomen: Lung bases are clear. The gallbladder is unremarkable. Multiple hepatic cysts are again noted. The spleen and adrenal glands are unremarkable. The left renal cyst noted on the prior exam is stable as well. A few punctate calcifications are noted in the pancreas, stable as well, likely the sequela of chronic pancreatitis. No bowel obstruction or fluid collection is seen. Pelvis: The appendix is not visualized. There is mild wall thickening of the distal descending and proximal sigmoid colon consistent with mild residual changes of diverticulitis, which was noted on the prior CT of 11/07/2024. There has been interval resolution of the previously noted abscess as well. No fluid collection or adenopathy is seen. The small bladder stone is again noted. IMPRESSION: Resolved paracolic abscess. Mild residual wall thickening of the descending and proximal sigmoid colon consistent with mild residual changes of inflammation secondary to the prior diverticulitis. Reviewed, Interpreted and Dictated by Jose Alejandro Luu MD Transcribed by Susanna Johnson Authenticated and [facility]
[2024-11-24] MEDS: IOPAMIDOL-370 (76%);100ML BOTTLE 75 ML IV (08:43)
[2024-11-24] MEDS: SODIUM CHLORIDE 0.9% 10ML SYR (RAD ONLY) 10 ML IV (08:43)
== END 2024-11-24 23:59 | disposition home or self-care (01) ==
LOC: RAD 08:25
PROVIDERS: PCP Nurse Practitioner; Visit Provider Surgery
DX: K57.20 Diverticulitis of large intestine with perforation and abscess without bleeding (principal)
CPT/HCPCS: 74177; Q9967

== ENCOUNTER 2024-11-29 13:51 | Outpatient (CLI) | payer MEDICARE, OTHER, SELFPAY ==
[2024-11-29] MEDS: NEOMYCIN-BACIT-POLYM OPHTH OINT 3.5GM TUBE OP (14:10)
== END 2024-11-29 14:10 | disposition home or self-care (01) ==
LOC: INF 13:54
PROVIDERS: PCP Nurse Practitioner; Visit Provider Surgery
DX: K57.92 Diverticulitis of intestine, part unspecified, without perforation or abscess without bleeding (principal)
CPT/HCPCS: G0463